=== PATIENT | male | born 1960 | race Caucasian/White ===

== ENCOUNTER 2019-01-21 12:40 | Observation (INO) | payer BC ==
[2019-01-21] MEDS ORDERED: ACETAMINOPHEN TAB 500 MG TAB PO STA (13:11)
[2019-01-21] MEDS ORDERED: ASPIRIN 81 MG PO STA (13:13)
[2019-01-21] MEDS ORDERED: NITROGLYCERIN OINT 1 INCH/GM PACKET TOPICAL STA (13:14)
--- NOTE | 2019-01-21 13:26 | ED ---
General Adult HPI - General Chief complaint: Chest Pain Stated complaint: New blood pressure meds, sweating Time Seen by Provider: 01/21/19 12:45 Source: patient, RN notes reviewed Mode of arrival: ambulatory Limitations: no limitations - History of Present Illness Initial comments: This is a 58-year-old male who presents emergency Department complaining of some chest tightness diaphoresis and shortness of breath after walking up a flight of stairs. Patient states the pain didn't radiate to his middle of his back as well. Patient states when he arrived at the hospital with a client he had another episode of chest pain with the chest tightness radiating directly into his back again. Patient states over the last few weeks he is been getting over sinus infection but he has been feeling better as of late. Patient states today he was walking up a few steps to [place] and he became diaphoretic certainly some chest tightness and shortness of breath. Patient states the tightness still remains a little on these still a little short of breath. Patient states he does have high blood pressure and high cholesterol. Patient states he also smoke. Patient denies any palpitations. Patient denies any recent fever or chills. Patient denies a cough. Patient denies any recent trip or travel. Patient denies any swelling to the legs or calf tenderness. Patient denies any lightheadedness dizziness or near syncopal episode. Patient denies headache patient denies numbness weakness. - Related Data Home Medications Medication Instructions Recorded Confirmed Gemfibrozil [Lopid] 600 mg PO DAILY 01/21/19 01/21/19 Lisinopril 40 mg PO DAILY 01/21/19 01/21/19 Lovastatin [Mevacor] 40 mg PO DAILY 01/21/19 01/21/19 amLODIPine BESYLATE 5 mg PO DAILY 01/21/19 01/21/19 Allergies Allergy/AdvReac Type Severity Reaction Status Date / Time No Known Allergies Allergy Verified 01/21/19 13:59 Review of Systems ROS Statement: Those systems with pertinent positive or pertinent negative responses have been documented in the HPI. ROS Other: All systems not noted in ROS Statement are negative. Past Medical History Past Medical History: Hyperlipidemia, Hypertension History of Any Multi-Drug Resistant Organisms: None Reported Past Surgical History: Back Surgery Past Psychological History: No Psychological Hx Reported Smoking Status: Current every day smoker Past Alcohol Use History: Occasional Past Drug Use History: None Reported General Exam - General Exam Comments Initial Comments: GENERAL: Patient is well-developed and well-nourished. Patient is nontoxic and well- hydrated and is in mild distress. ENT: Neck is soft and supple. No significant lymphadenopathy is noted. Oropharynx is clear. Moist mucous membranes. Neck has full range of motion without eliciting any pain. Patient's temperature was 99.6 EYES: The sclera were anicteric and conjunctiva were pink and moist. Extraocular movements were intact and pupils were equal round and reactive to light. Eyelids were unremarkable. PULMONARY: Unlabored respirations. Good breath sounds bilaterally. No audible rales rhonchi or wheezing was noted. CARDIOVASCULAR: Patient is tachycardic at 110 beats a minute ABDOMEN: Soft and nontender with normal bowel sounds. No palpable organomegaly was noted. There is no palpable pulsatile mass. SKIN: Skin is clear with no lesions or rashes and otherwise unremarkable. NEUROLOGIC: Patient is alert and oriented x3. Cranial nerves II through XII are grossly intact. Motor and sensory are also intact. Normal speech, volume and content. Symmetrical smile. MUSCULOSKELETAL: Normal extremities with adequate strength and full range of motion. No lower extremity swelling or edema. No calf tenderness. LYMPHATICS: No significant lymphadenopathy is noted PSYCHIATRIC: Normal psychiatric evaluation. Limitations: no limitations Course Vital Signs 01/21/19 01/21/19 01/21/19 12:47 13:51 13:56 Temperature 98.1 F 98.3 F Pulse Rate 113 H 101 H Pulse Rate [ 101 H Apical] Respiratory 20 16 Rate Blood Pressure 167/85 139/84 O2 Sat by Pulse 98 96 Oximetry Medical Decision Making - Medical Decision Making EKG shows sinus tachycardia 110 beats a minute VA interval 1:30 QRS is 90 QT interval is 328 QTC is 443. Patient's EKG shows no ST segment elevation or depression or T wave abnormalities are noted. Chest x-ray shows no acute abnormalities I went back and reevaluate the patient he was no longer having any chest pain. Patient was started on heparin because he unstable angina. I spoke with Dr. Tabor he agreed to admit the patient admitted the patient continued heparin Nitropaste and aspirin on the floor. I also started patient on metoprolol 12.5 twice a day. And I ordered an echocardiogram and consult cardiology. - Lab Data Result diagrams: 01/21/19 13:50 01/21/19 13:50 Lab Results 01/21/19 01/21/19 01/21/19 Range/Units 13:50 13:50 13:50 WBC 10.6 (3.8-10.6) k/uL RBC 5.42 (4.30-5.90) m/uL Hgb 16.0 (13.0-17.5) gm/dL Hct 47.0 (39.0-53.0) % MCV 86.7 (80.0-100.0) fL MCH 29.5 (25.0-35.0) pg MCHC 34.0 (31.0-37.0) g/dL RDW 13.3 (11.5-15.5) % Plt Count 335 (150-450) k/uL Neutrophils % 66 % Lymphocytes % 22 % Monocytes % 7 % Eosinophils % 2 % Basophils % 1 % Neutrophils # 7.0 (1.3-7.7) k/uL Lymphocytes # 2.3 (1.0-4.8) k/uL Monocytes # 0.7 (0-1.0) k/uL Eosinophils # 0.3 (0-0.7) k/uL Basophils # 0.1 (0-0.2) k/uL PT (9.0-12.0) sec INR (<1.2) APTT (22.0-30.0) sec D-Dimer (<0.60) mg/L FEU Sodium 141 (137-145) mmol/L Potassium 5.2 H (3.5-5.1) mmol/L Chloride 108 H (98-107) mmol/L Carbon Dioxide 24 (22-30) mmol/L Anion Gap 9 mmol/L BUN 29 H (9-20) mg/dL Creatinine 0.92 (0.66-1.25) mg/dL Est GFR (CKD-EPI)AfAm >90 (>60 ml/min/1.73 sqM) Est GFR (CKD-EPI)NonAf >90 (>60 ml/min/1.73 sqM) Glucose 103 H (74-99) mg/dL Plasma Lactic Acid Morris 1.1 (0.7-2.0) mmol/L Calcium 9.8 (8.4-10.2) mg/dL Total Bilirubin 0.6 (0.2-1.3) mg/dL AST 18 (17-59) U/L ALT 25 (21-72) U/L Alkaline Phosphatase 75 (38-126) U/L Troponin I (0.000-0.034) ng/mL Total Protein 7.6 (6.3-8.2) g/dL Albumin 4.8 (3.5-5.0) g/dL Urine Color Urine Appearance (Clear) Urine pH (5.0-8.0) Ur Specific Preston (1.001-1.035) Urine Protein (Negative) Urine Glucose (UA) (Negative) Urine Ketones (Negative) Urine Blood (Negative) Urine Nitrite (Negative) Urine Bilirubin (Negative) Urine Urobilinogen (<2.0) mg/dL Ur Leukocyte Esterase (Negative) Influenza Type A RNA (Not Detectd) Influenza Type B (PCR) (Not Detectd) 01/21/19 01/21/19 01/21/19 Range/Units 13:50 13:50 13:55 WBC (3.8-10.6) k/uL RBC (4.30-5.90) m/uL Hgb (13.0-17.5) gm/dL Hct (39.0-53.0) % MCV (80.0-100.0) fL MCH (25.0-35.0) pg MCHC (31.0-37.0) g/dL RDW (11.5-15.5) % Plt Count (150-450) k/uL Neutrophils % % Lymphocytes % % Monocytes % % Eosinophils % % Basophils % % Neutrophils # (1.3-7.7) k/uL Lymphocytes # (1.0-4.8) k/uL Monocytes # (0-1.0) k/uL Eosinophils # (0-0.7) k/uL Basophils # (0-0.2) k/uL PT 9.9 (9.0-12.0) sec INR 0.9 (<1.2) APTT 25.0 (22.0-30.0) sec D-Dimer 0.39 (<0.60) mg/L FEU Sodium (137-145) mmol/L Potassium (3.5-5.1) mmol/L Chloride (98-107) mmol/L Carbon Dioxide (22-30) mmol/L Anion Gap mmol/L BUN (9-20) mg/dL Creatinine (0.66-1.25) mg/dL Est GFR (CKD-EPI)AfAm (>60 ml/min/1.73 sqM) Est GFR (CKD-EPI)NonAf (>60 ml/min/1.73 sqM) Glucose (74-99) mg/dL Plasma Lactic Acid Morris (0.7-2.0) mmol/L Calcium (8.4-10.2) mg/dL Total Bilirubin (0.2-1.3) mg/dL AST (17-59) U/L ALT (21-72) U/L Alkaline Phosphatase (38-126) U/L Troponin I <0.012 (0.000-0.034) ng/mL Total Protein (6.3-8.2) g/dL Albumin (3.5-5.0) g/dL Urine Color Colorless Urine Appearance Clear (Clear) Urine pH 6.0 (5.0-8.0) Ur Specific Preston 1.005 (1.001-1.035) Urine Protein Negative (Negative) Urine Glucose (UA) Negative (Negative) Urine Ketones Negative (Negative) Urine Blood Negative (Negative) Urine Nitrite Negative (Negative) Urine Bilirubin Negative (Negative) Urine Urobilinogen <2.0 (<2.0) mg/dL Ur Leukocyte Esterase Negative (Negative) Influenza Type A RNA (Not Detectd) Influenza Type B (PCR) (Not Detectd) 01/21/19 Range/Units 15:20 WBC (3.8-10.6) k/uL RBC (4.30-5.90) m/uL Hgb (13.0-17.5) gm/dL Hct (39.0-53.0) % MCV (80.0-100.0) fL MCH (25.0-35.0) pg MCHC (31.0-37.0) g/dL RDW (11.5-15.5) % Plt Count (150-450) k/uL Neutrophils % % Lymphocytes % % Monocytes % % Eosinophils % % Basophils % % Neutrophils # (1.3-7.7) k/uL Lymphocytes # (1.0-4.8) k/uL Monocytes # (0-1.0) k/uL Eosinophils # (0-0.7) k/uL Basophils # (0-0.2) k/uL PT (9.0-12.0) sec INR (<1.2) APTT (22.0-30.0) sec D-Dimer (<0.60) mg/L FEU Sodium (137-145) mmol/L Potassium (3.5-5.1) mmol/L Chloride (98-107) mmol/L Carbon Dioxide (22-30) mmol/L Anion Gap mmol/L BUN (9-20) mg/dL Creatinine (0.66-1.25) mg/dL Est GFR (CKD-EPI)AfAm (>60 ml/min/1.73 sqM) Est GFR (CKD-EPI)NonAf (>60 ml/min/1.73 sqM) Glucose (74-99) mg/dL Plasma Lactic Acid Morris (0.7-2.0) mmol/L Calcium (8.4-10.2) mg/dL Total Bilirubin (0.2-1.3) mg/dL AST (17-59) U/L ALT (21-72) U/L Alkaline Phosphatase (38-126) U/L Troponin I (0.000-0.034) ng/mL Total Protein (6.3-8.2) g/dL Albumin (3.5-5.0) g/dL Urine Color Urine Appearance (Clear) Urine pH (5.0-8.0) Ur Specific Preston (1.001-1.035) Urine Protein (Negative) Urine Glucose (UA) (Negative) Urine Ketones (Negative) Urine Blood (Negative) Urine Nitrite (Negative) Urine Bilirubin (Negative) Urine Urobilinogen (<2.0) mg/dL Ur Leukocyte Esterase (Negative) Influenza Type A RNA Not Detected (Not Detectd) Influenza Type B (PCR) Not Detected (Not Detectd) Critical Care Time Critical Care Time: Yes Total Critical Care Time: 35 Disposition Clinical Impression: Unstable angina pectoris Disposition: ADMITTED IP TO THIS HOSP Is patient prescribed a controlled substance at d/c from ED?: No Referrals: Shankar Tabor MD [Primary Care Provider] - 1-2 days Time of Disposition: 16:03
[2019-01-21 14:11] LABS: Basophils # (A) 0.1 k/uL (0-0.2); Basophils % (A) 1 %; Eosinophils # (A) 0.3 k/uL (0-0.7); Eosinophils % (A) 2 %; Lymphocytes # (A) 2.3 k/uL (1.0-4.8); Lymphocytes % (A) 22 %; MCH 29.5 pg (25.0-35.0); MCV 86.7 fL (80.0-100.0); Mean Platelet Volume 6.6; Monocytes # (A) 0.7 k/uL (0-1.0); Monocytes % (A) 7 %; Neutrophils % (A) 66 %; Platelet Count 335 k/uL (150-450); RBC 5.42 m/uL (4.30-5.90); RDW 13.3 % (11.5-15.5); WBC 10.6 k/uL (3.8-10.6)
[2019-01-21 14:13] LABS: Appearance,Urine Clear (Clear); Bilirubin,Urine Negative (Negative); Blood,Urine Negative (Negative); Color,Urine Colorless; Glucose,Urine (UA) Negative (Negative); Ketones,Urine Negative (Negative); Leukocyte Esterase,Urine Negative (Negative); Nitrite,Urine Negative (Negative); Protein,Urine Negative (Negative); Specific Gravity,Urine 1.005 (1.001-1.035); Urobilinogen,Urine <2.0 mg/dL (<2.0)
[2019-01-21 14:22] LABS: ALT 25 U/L (21-72); AST 18 U/L (17-59); Albumin 4.8 g/dL (3.5-5.0); Alkaline Phosphatase 75 U/L (38-126); Anion Gap 9 mmol/L; Blood Urea Nitrogen 29 mg/dL (9-20); Calcium 9.8 mg/dL (8.4-10.2); Carbon Dioxide 24 mmol/L (22-30); Chloride 108 mmol/L (98-107); Glucose 103 mg/dL (74-99); Potassium 5.2 mmol/L (3.5-5.1); Sodium 141 mmol/L (137-145); Total Bilirubin 0.6 mg/dL (0.2-1.3); Total Protein 7.6 g/dL (6.3-8.2)
[2019-01-21 14:24] LABS: D-Dimer 0.39 mg/L FEU (<0.60); INR 0.9 (<1.2); Prothrombin Time 9.9 sec (9.0-12.0)
--- NOTE | 2019-01-21 15:13 | XR ---
EXAMINATION TYPE: XR chest 2V DATE OF EXAM: 01/21/2019 COMPARISON: NONE TECHNIQUE: PA and lateral views submitted. HISTORY: Fever, shortness of breath and chest pain FINDINGS: Heart size normal. No overt failure or pneumothorax. No pleural effusion. Subsegmental changes at the left lung base. Biapical pleural thickening. IMPRESSION: 1. Left basilar atelectasis favored over infiltrate correlate clinically.
[2019-01-21] MEDS ORDERED: HEPARIN SODIUM,PORCINE 5,000 UNIT/ML 1 ML VIAL IV ONE (16:01)
[2019-01-21] MEDS ORDERED: NITROGLYCERIN SL TABS 0.4 MG TAB SUBLINGUAL PRN (16:03)
[2019-01-21] MEDS ORDERED: NICOTINE 14MG/24HR PATCH TRANSDERM STA (16:07)
[2019-01-21] MEDS ORDERED: HEPARIN SOD,PORK IN 0.45% NACL 25,000 UNIT in 0.45% NACL 1 250ML.BAG IV SCH (16:15)
[2019-01-21 16:55] VITALS: BMI 30.4
[2019-01-21] MEDS: NITROGLYCERIN OINT 1 INCH/GM PACKET TOPICAL SCH (19:48)
[2019-01-21] MEDS: METOPROLOL TARTRATE 12.5 MG TAB PO SCH ×2 (19:59→20:06)
[2019-01-21 22:56] LABS: Cholesterol 147 mg/dL (<200); HDL Cholesterol 31 mg/dL (40-60); LDL Cholesterol,Calculated 82 mg/dL (0-99); Triglycerides 170 mg/dL (<150)
[2019-01-22] MEDS: NITROGLYCERIN OINT 1 INCH/GM PACKET TOPICAL SCH ×3 (00:24→05:01)
[2019-01-22 07:55] VITALS: BP 101/63; PULSE 80; RESP 18; TEMP 97.5
[2019-01-22] MEDS ORDERED: LISINOPRIL 20 MG TAB PO SCH (09:00)
[2019-01-22] MEDS ORDERED: FAMOTIDINE 20 MG TAB PO SCH (09:00)
[2019-01-22] MEDS ORDERED: amLODIPine 5 MG TAB PO SCH (09:00)
[2019-01-22] MEDS ORDERED: FENOFIBRATE 160 MG TAB PO SCH (09:00)
[2019-01-22] MEDS ORDERED: ASPIRIN 325 MG TAB PO SCH (09:00)
[2019-01-22] MEDS ORDERED: NICOTINE 14MG/24HR PATCH TRANSDERM SCH ×2 (09:00)
[2019-01-22] MEDS ORDERED: ATORVASTATIN 10 MG TAB PO SCH (09:00)
--- NOTE | 2019-01-22 09:52 | P.CRDCN ---
History of Present Illness History of present illness: This is a pleasant 58-year-old male past medical history significant for hypertension, dyslipidemia, chronic nicotine dependence and gastroesophageal reflux disease. He denies history of diabetes mellitus or coronary artery disease. He has seen Dr. Pitts in the past in the office. We have been asked to see him in consultation for chest pain. He states over the previous few weeks he has been struggling with cough, congestion and upper respiratory/sinus illness. Through the course of this he has been checking his blood pressures at home and they have been consistently elevated around 180/ 100. His pulse has consistently been elevated between 95-110 as well. His PCP asked him to double his dose of lisinopril from 20 daily to 40 daily. Despite doing that his blood pressures were still high and Saturday he was started on amlodipine 5 mg daily. Yesterday while at work he just got done going up 3 flights of stairs, which he regularly does, and he became acutely diaphoretic while talking with a co-worker. This lasted a few minutes and resolved on its own. He had no associated chest pain, shortness of breath, dizziness or palpitations. He then came to the hospital to visit with a client of his that was here and he had a similar episode of acute onset of diaphoresis. However this time he describes feeling a tight sensation in the mid-scaular region with radiation through to the mid-sternal region. No radiation down the arms, into the neck or jaw. He also felt mildly short of breath. No dizziness or palpitations. The symptoms lasted approximately 5 minutes and subsided on their own. He has had no further symptoms since being admitted to the hospital. EKG reveals sinus mechanism with no acute changes or ST elevation noted. Chest xray reveals left basilar atelectasis versus infiltrate. Laboratory data reviewed, WBC 10.6, hemoglobin 16, platelets 335, d-dimer 0.39, sodium 141, potassium 5.2, creatinine 0.92, cardiac enzymes negative 3, LDL 82 and HDL 31. Current cardiac medications include lisinopril 40 mg daily, Lopid 600 mg daily, lovastatin 40 mg daily and amlodipine 5 mg daily. At the time of my exam: CONSTITUTIONAL: Denies fever. Denies chills. EYES: Denies blurred vision. Denies vision changes. Denies eye pain. EARS, NOSE, MOUTH & THROAT: Denies headache. Denies sore throat. Denies ear pain. CARDIOVASCULAR: Denies chest pain. Denies shortness of breath. Denies orthopnea. Denies PND. Denies palpitations. RESPIRATORY: Denies cough. GASTROINTESTINAL: Denies abdominal pain. Denies diarrhea. Denies constipation. Denies nausea. Denies vomiting. MUSCULOSKELETAL: Denies myalgias. INTEGUMENTARY: Denies pruitis. Denies rash. NEUROLOGIC: Denies numbness. Denies tingling. Denies weakness. PSYCHIATRIC: Denies anxiety. Denies depression. ENDOCRINE: Denies fatigue. Denies weight change. Denies polydipsia. Denies polyurina. GENITOURINARY: Denies burning, hematuria or urgency with micturation. HEMATOLOGIC: Denies history of anemia. Denies bleeding. Blood pressure 101/63 heart rate 88 afebrile maintaining oxygen saturation on room air GENERAL: This is a 58-year-old male in no apparent distress at the time of my examination. HEENT: Head is atraumatic, normocephalic. Pupils are equal, round. Sclerae anicteric. Conjunctivae are clear. Mucous membranes of the mouth are moist. Neck is supple. There is no jugular venous distention. No carotid bruit is heard. LUNGS: Clear to auscultation no wheezes, rales or rhonchi. No chest wall tenderness is noted on palpation or with deep breathing. HEART: Regular rate and rhythm without murmurs, rubs or gallops. S1 and S2 heard. ABDOMEN: Soft, nontender. Bowel sounds are heard. No organomegaly noted. EXTREMITIES: No evidence of peripheral edema and no calf tenderness noted. VASCULAR: Radial and dorsalis pedis pulses palpated, no evidence of clubbing. NEUROLOGIC: Patient is awake, alert and oriented x3. ASSESSMENT Chest pain, atypical for angina. An acute coronary event has been ruled out. Possibility of pneumonia seen on chest xray Sinus tachycardia, etiology unknown. Possibly related to underlying infection. Hypertension, evidence of hypotension since admission. Dyslipidemia Chronic nicotine dependence PLAN An acute coronary event has been ruled out. Discontinue heparin infusion, nitroglycerin patch and lopressor. Echocardiogram has been ordered by ED and will be reviewed. Check TSH. Underlying cause of sinus tachycardia my be related to infectious process. Increase activity and ambulation in the halls. The patient would prefer to do a stress test as an outpatient when his URI symptoms have improved. If he remains chest pain free with exertion he may be discharged home to pursue a stress test as an outpatient with Dr. Pitts. Thank you kindly for this consultation. Nurse Practitioner note has been reviewed, I agree with a documented findings and plan of care. Patient was seen and examined. 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 History of Any Multi-Drug Resistant Organisms: None Reported Past Surgical History: Back Surgery Additional Past Surgical History / Comment(s): colonoscopy/polypectomy-benign, egd Past Anesthesia/Blood Transfusion Reactions: No Reported Reaction Additional Past Anesthesia/Blood Transfusion Reaction / Comment(s): has never received any blood transfusion Smoking Status: Current every day smoker - Past Family History Mother Family Medical History: Cancer Additional Family Medical History / Comment(s): cervical cancer Father Family Medical History: Cancer Additional Family Medical History / Comment(s): lung cancer, was smoker and had expsoure to asbestos Medications and Allergies Home Medications Medication Instructions Recorded Confirmed Type Gemfibrozil [Lopid] 600 mg PO DAILY 01/21/19 01/21/19 History Lisinopril 40 mg PO DAILY 01/21/19 01/21/19 History Lovastatin [Mevacor] 40 mg PO DAILY 01/21/19 01/21/19 History amLODIPine BESYLATE 5 mg PO DAILY 01/21/19 01/21/19 History Allergies Allergy/AdvReac Type Severity Reaction Status Date / Time No Known Allergies Allergy Verified 01/21/19 20:07 Physical Exam Vitals: Vital Signs Temp Pulse Pulse Resp BP BP Pulse Ox 01/22/19 04:44 98.0 F 87 14 100/56 98 01/22/19 02:58 79 16 01/22/19 00:28 97.7 F 80 14 93/46 99 01/21/19 23:27 89 17 01/21/19 20:00 88 17 01/21/19 19:15 98.7 F 91 14 135/88 99 01/21/19 16:47 89 20 125/77 95 01/21/19 13:56 101 H 01/21/19 13:51 98.3 F 101 H 16 139/84 96 01/21/19 12:47 98.1 F 113 H 20 167/85 98 Intake and Output 01/21/19 01/22/19 01/22/19 22:59 06:59 14:59 Intake Total 115.5 Balance 115.5 Intake: Intake, IV Titration 115.5 Amount Heparin Sod,Pork in 0.45% 115.5 NaCl 25,000 unit In 0.45 % NaCl 1 250ml.bag @ 10. 409 UNITS/KG/HR 10 mls/hr IV .Q24H [facility] Rx#: [id number] Other: Voiding Method Toilet Toilet # Voids 1 Results 01/21/19 13:50 01/21/19 13:50 Cardiac Enzymes 01/21/19 01/21/19 01/21/19 Range/Units 13:50 13:50 19:04 AST 18 (17-59) U/L Troponin I <0.012 <0.012 (0.000-0.034) ng/mL 01/22/19 Range/Units 01:42 AST (17-59) U/L Troponin I <0.012 (0.000-0.034) ng/mL Coagulation 01/21/19 01/22/19 Range/Units 13:50 03:22 PT 9.9 (9.0-12.0) sec APTT 25.0 35.7 H (22.0-30.0) sec Lipids 01/21/19 Range/Units 13:50 Triglycerides 170 H (<150) mg/dL Cholesterol 147 (<200) mg/dL HDL Cholesterol 31 L (40-60) mg/dL CBC 01/21/19 Range/Units 13:50 WBC 10.6 (3.8-10.6) k/uL RBC 5.42 (4.30-5.90) m/uL Hgb 16.0 (13.0-17.5) gm/dL Hct 47.0 (39.0-53.0) % Plt Count 335 (150-450) k/uL Comprehensive Metabolic Panel 01/21/19 Range/Units 13:50 Sodium 141 (137-145) mmol/L Potassium 5.2 H (3.5-5.1) mmol/L Chloride 108 H (98-107) mmol/L Carbon Dioxide 24 (22-30) mmol/L BUN 29 H (9-20) mg/dL Creatinine 0.92 (0.66-1.25) mg/dL Glucose 103 H (74-99) mg/dL Calcium 9.8 (8.4-10.2) mg/dL AST 18 (17-59) U/L ALT 25 (21-72) U/L Alkaline Phosphatase 75 (38-126) U/L Total Protein 7.6 (6.3-8.2) g/dL Albumin 4.8 (3.5-5.0) g/dL Current Medications Generic Name Dose Route Start Last Admin Trade Name Freq PRN Reason Stop Dose Admin Amlodipine Besylate 5 mg 01/22/19 09:00 Norvasc PO DAILY [facility] Aspirin 325 mg 01/22/19 09:00 Aspirin PO DAILY [facility] Atorvastatin Calcium 10 mg 01/22/19 09:00 Lipitor PO DAILY [facility] Famotidine 20 mg 01/22/19 09:00 Pepcid PO DAILY [facility] Fenofibrate 160 mg 01/22/19 09:00 Lofibra PO DAILY [facility] Heparin Sodium/Sodium Chloride 250 mls @ 10 mls/hr 01/21/19 16:15 01/22/19 04 :19 25,000 unit/ Sodium Chloride IV 13.409 units/kg/hr .Q24H [facility] 12.88 mls/hr Titration Protocol 10.409 UNITS/KG/HR Lisinopril 40 mg 01/22/19 09:00 Zestril PO DAILY [facility] Metoprolol Tartrate 12.5 mg 01/21/19 21:00 01/21/19 20:06 Lopressor PO Not Given BID [facility] Nicotine 1 patch 01/22/19 09:00 Habitrol 14mg/24hr Patch TRANSDERM DAILY [facility] Nitroglycerin 1 inch 01/21/19 18:00 01/22/19 05:01 Nitro-Bid Oint TOPICAL 1 inch Q6HR [facility] Administration Nitroglycerin 0.4 mg 01/21/19 16:03 Nitrostat SUBLINGUAL Q5M PRN Chest Pain Intake and Output 01/21/19 01/22/19 01/22/19 22:59 06:59 14:59 Intake Total 115.5 Balance 115.5 Intake: Intake, IV Titration 115.5 Amount Heparin Sod,Pork in 0.45% 115.5 NaCl 25,000 unit In 0.45 % NaCl 1 250ml.bag @ 10. 409 UNITS/KG/HR 10 mls/hr IV .Q24H [facility] Rx#: [id number] Other: Voiding Method Toilet Toilet # Voids 1 01/21/19 13:50 01/21/19 13:50
--- NOTE | 2019-01-22 13:32 | P.HPIM ---
History of Present Illness H&P Date: 01/21/19 Chief Complaint: unstable angina, chest pain, hypertension, hyperlipidem, and chronic histo 58-year-old male one of my office patient who is known to have history of hypertension, hyperlipidemia, hyperglycemia, and chronic history of smoking who presented to demurs department today after 2 episode of chest pain one of them happen at the [facility] when he was with the client walking up to the [employer] developed to have midsternal chest pain and tightness with mild shortness of breath radiating toward the left upper side of his chest wall. Apparently he came with the client to the hospital and a blood another episode of chest pain while he is not hospital with mild swelling nausea feeling and palpitation with mild lightheadedness. Patient declined any cough or any upper respiratory infection symptoms. With the CK and troponin were negative EKG didn't show any change. Patient has extremely high risk factor for coronary artery disease decided to heparinize patient keep him on nitro admitted to the hospital with see cardiology and plan for an echocardiogram and possible stress test. Review of Systems CONSTITUTIONAL: Well-developed no acute respiratory distress. EYES: No icterus sclerae, no conjunctivitis. EARS, NOSE, MOUTH, THROAT, and FACE: No sore throat, lymphadenopathy, carotid bruits or deformity. RESPIRATORY: positive mild shortness of breath with exertion CARDIOVASCULAR: positive chest pain and angina< positive palpitation GASTROINTESTINAL: No Abd pain, Nausea or vomiting, no Diarrhea or constipation, No GI Bleed, no distention or masses. GENITOURINARY: Negative for Hematuria or UTI, no kidney stones. INTEGUMENT/BREAST: Negative for any muscular injury with mild osteoarthritis.. HEMATOLOGIC/LYMPHATIC: Negative for bleed or purpura. MUSCULOSKELTAL: Negative for Myalgia or arthralgia. NEURLOGICAL: No LOC, Sz or syncope, blurred vision dizziness or abnormality.. BEHAVIORAL/PSYCH: Negative. ENDOCRINE: Negative. 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 History of Any Multi-Drug Resistant Organisms: None Reported Past Surgical History: Back Surgery Additional Past Surgical History / Comment(s): colonoscopy/polypectomy-benign, egd Past Anesthesia/Blood Transfusion Reactions: No Reported Reaction Additional Past Anesthesia/Blood Transfusion Reaction / Comment(s): has never received any blood transfusion Smoking Status: Current every day smoker - Past Family History Mother Family Medical History: Cancer Additional Family Medical History / Comment(s): cervical cancer Father Family Medical History: Cancer Additional Family Medical History / Comment(s): lung cancer, was smoker and had expsoure to asbestos Medications and Allergies Home Medications Medication Instructions Recorded Confirmed Type Gemfibrozil [Lopid] 600 mg PO DAILY 01/21/19 01/21/19 History Lisinopril 40 mg PO DAILY 01/21/19 01/21/19 History Lovastatin [Mevacor] 40 mg PO DAILY 01/21/19 01/21/19 History amLODIPine BESYLATE 5 mg PO DAILY 01/21/19 01/21/19 History Aspirin EC [Ecotrin Low Dose] 81 mg PO DAILY #30 tablet.dr 01/22/19 Rx Metoprolol Tartrate 12.5 mg PO BID #30 tab 01/22/19 Rx Nicotine 14Mg/24Hr Patch [Habitrol] 1 patch TRANSDERM DAILY #30 patch 01/22/19 Rx Allergies Allergy/AdvReac Type Severity Reaction Status Date / Time No Known Allergies Allergy Verified 01/21/19 20:07 Physical Exam Vitals: Vital Signs Temp Pulse Pulse Resp BP BP Pulse Ox 01/21/19 19:15 98.7 F 91 14 135/88 99 01/21/19 16:47 89 20 125/77 95 01/21/19 13:56 101 H 01/21/19 13:51 98.3 F 101 H 16 139/84 96 01/21/19 12:47 98.1 F 113 H 20 167/85 98 Intake and Output 01/21/19 01/21/19 01/21/19 06:59 14:59 22:59 Other: Weight 96.071 kg General Appearance: Alert, cooperative, no distress, appears stated age. Neck HEENT: Supple, no lymphadenopathy, no thyroid enlargement, no carotid bruits. Lungs: Clear to auscultation without crackles or wheezes no rhonchi, no deformity. Chest Wall: Chest wall normal expansion with deep inspiration no tenderness and no deformity was found on exam, no costochondral pain or discomfort. Heart: Regular rate and rhythm, S1, S2 normal, no murmur, rub or gallop. Back: Symmetric, no curvature, ROM normal, no CVA tenderness. Abdomen: Soft, non-tender, bowel sounds active all four quadrants, no masses, no organomegaly. Extremities: Extremities normal, atraumatic, no cyanosis or edema. Pulses: 2+ and symmetric. Skin: Skin color, texture, tugor normal, no rashes or lesions. Neurologic: Alert oriented x3 cranial nerves II through XII intact, no motor deficit, no abnormal balance or gait. Results CBC & Chem 7: 01/21/19 13:50 01/21/19 13:50 Labs: Abnormal Lab Results - Last 24 Hours (Table) 01/21/19 Range/Units 13:50 Potassium 5.2 H (3.5-5.1) mmol/L Chloride 108 H (98-107) mmol/L BUN 29 H (9-20) mg/dL Glucose 103 H (74-99) mg/dL Microbiology - Last 24 Hours (Table) 01/21/19 13:55 Urine Culture - Preliminary Urine,Clean Catch Thrombosis Risk Factor Assmnt - DVT/VTE Prophylaxis DVT/VTE Prophylaxis: Pharmacologic Prophylaxis ordered, Mechanical Prophylaxis ordered Assessment and Plan Plan: 1 Unstable angina: Patient had typical chest pain with exertion, multiple risk factor, we will admit patient to the hospital start him on heparin drip nitro consult cardiology, repeat CK with troponin 3, repeat EKG in the morning, echocardiogram and stress test to be done if troponin is elevated patient will need to go for heart cath. 2 hypertension: Has been well controlled on his home meds been on amlodipine and lisinopril was start patient on smaller dose of beta taylor as well with metoprolol 12.5 mg twice a day. 3 hyperlipidemia: Remain on statin which will be switch in the hospital to atorvastatin and continue patient on fenofibrate. 4 chronic history of smoking: Smoking cessation was addressed was start patient on nicotine patch 14 mg daily. 5 severe GERD: Patient will be on Pepcid and can benefit from PPI with omeprazole 20 mg a day. 6 DVT prophylaxis: Patient will be on heparin drip for now. CODE STATUS: Full code. Admit patient to the hospital for 1-2 night.
--- NOTE | 2019-01-22 15:53 | P.DS ---
Providers Date of admission: 01/21/19 16:03 Expected date of discharge: 01/22/19 Attending physician: Shankar Tabor Consults: 01/21/19 16:03 Consult Physician Urgent Consulting Provider: [facility] Consult Reason/Comments: Unstable angina Do you want consulting provider notified?: Yes Primary care physician: Shankar Leander [facility] Course: 58-year-old male one of my office patient who is known to have history of hypertension, hyperlipidemia, hyperglycemia, and chronic history of smoking who presented to demurs department today after 2 episode of chest pain one of them happen at the [facility] when he was with the client walking up to the [employer] developed to have midsternal chest pain and tightness with mild shortness of breath radiating toward the left upper side of his chest wall. Apparently he came with the client to the hospital and a blood another episode of chest pain while he is not hospital with mild swelling nausea feeling and palpitation with mild lightheadedness. Patient declined any cough or any upper respiratory infection symptoms. With the CK and troponin were negative EKG didn't show any change. Patient has extremely high risk factor for coronary artery disease decided to heparinize patient keep him on nitro admitted to the hospital with see cardiology and plan for an echocardiogram and possible stress test. 01/22: Cardiology has evaluated with plan for outpatient stress testing. Patient states he is pain-free and is agreeable to go home and follow up for testing. Patient is agreeable to start a nicotine patch for smoking cessation at home. He will be discharged home on Lopressor 12.5 mg twice daily as well. Discharge diagnoses: 1 Unstable angina 2 hypertension 3 hyperlipidemia 4 chronic history of smoking: Smoking cessation 5 severe GERD Discharge plan: Home Impression and plan of care have been directed as dictated by the signing physician. Kierra Tiwari nurse practitioner acting as scribe for signing physician. Patient Condition at Discharge: Good Plan - Discharge Summary Discharge Rx Participant: No New Discharge Prescriptions: New Metoprolol Tartrate 12.5 mg PO BID #30 tab Nicotine 14Mg/24Hr Patch [Habitrol] 1 patch TRANSDERM DAILY #30 patch Aspirin EC [Ecotrin Low Dose] 81 mg PO DAILY #30 tablet. Continue amLODIPine BESYLATE 5 mg PO DAILY Lovastatin [Mevacor] 40 mg PO DAILY Lisinopril 40 mg PO DAILY Gemfibrozil [Lopid] 600 mg PO DAILY Discharge Medication List Gemfibrozil [Lopid] 600 mg PO DAILY 01/21/19 [History] Lisinopril 40 mg PO DAILY 01/21/19 [History] Lovastatin [Mevacor] 40 mg PO DAILY 01/21/19 [History] amLODIPine BESYLATE 5 mg PO DAILY 01/21/19 [History] Aspirin EC [Ecotrin Low Dose] 81 mg PO DAILY #30 tablet. 01/22/19 [Rx] Metoprolol Tartrate 12.5 mg PO BID #30 tab 01/22/19 [Rx] Nicotine 14Mg/24Hr Patch [Habitrol] 1 patch TRANSDERM DAILY #30 patch 01/22/19 [ Rx] Follow up Appointment(s)/Referral(s): Shankar Tabor MD [Primary Care Provider] - 1 Week (pt to follow up with PCP.) Tamir Pitts MD [STAFF PHYSICIAN] - 1 Week (dental front office assistant, More, states she will call the patient regarding time and date of outpatient stress test. ) Patient Instructions/Handouts: Chest Pain (DC) Activity/Diet/Wound Care/Special Instructions: Schedule for OP stress test Discharge Disposition: HOME SELF-CARE
--- NOTE | 2019-01-22 16:34 | ECHOF ---
Referral Reason:Unstable angina MEASUREMENTS -------- HEIGHT: 177.8 cm WEIGHT: 95.7 kg BP: 100/56 RVIDd: 2.7 cm (< 3.3) IVSd: 1.3 cm (0.6 - 1.1) LVIDd: 3.5 cm (3.9 - 5.3) LVPWd: 1.3 cm (0.6 - 1.1) IVSs: 1.4 cm LVIDs: 2.4 cm LVPWs: 1.4 cm LAESV Index (A-L): 17.91 ml/m Ao Diam: 2.8 cm (2.0 - 3.7) AV Cusp: 1.7 cm (1.5 - 2.6) LA Diam: 3.6 cm (2.7 - 3.8) MV E Alexy: 0.70 m/s MV DecT: 276 ms MV A Alexy: 0.57 m/s MV E/A Ratio: 1.23 RAP: 5.00 mmHg RVSP: 9.97 mmHg MV EF SLOPE: 120.72 mm/s (70 - 150) MV EXCURSION: 1.78 cm (> 18.000) FINDINGS -------- Sinus rhythm. This was a technically adequate study. The left ventricular size is normal. There is moderate concentric left ventricular hypertrophy. O verall left ventricular systolic function is normal with, an EF between 55 - 60 %. The right ventricle is normal in size and function. Normal LA size by volume 22+/-6 ml/m2. The right atrium is normal in size. Aortic valve is trileaflet and is mildly thickened. There is no evidence of aortic regurgitation. There is no evidence of aortic stenosis. The mitral valve leaflets are mildly thickened. There is trace to mild mitral regurgitation. Trace tricuspid regurgitation present. Right ventricular systolic pressure is normal at < 35 mmHg. There is no evidence of pulmonary hypertension. Trace/mild (physiologic) pulmonic regurgitation. The aortic root size is normal. Normal inferior vena cava with normal inspiratory collapse consistent with estimated right atrial pre ssure of 5 mmHg. There is a small, generalized pericardial effusion present. CONCLUSIONS -------- 1. Sinus rhythm. 2. This was a technically adequate study. 3. The left ventricular size is normal. 4. There is moderate concentric left ventricular hypertrophy. 5. Overall left ventricular systolic function is normal with, an EF between 55 - 60 %. 6. Normal LA size by volume 22+/-6 ml/m2. 7. Aortic valve is trileaflet and is mildly thickened. 8. The mitral valve leaflets are mildly thickened. 9. There is trace to mild mitral regurgitation. 10. Trace tricuspid regurgitation present. 11. Right ventricular systolic pressure is normal at < 35 mmHg. 12. There is no evidence of pulmonary hypertension. 13. Trace/mild (physiologic) pulmonic regurgitation. 14. The aortic root size is normal. 15. There is a small, generalized pericardial effusion present. LINEN ROOM SUPERVISOR: Obed Boone RDCS
== END 2019-01-22 12:05 | disposition home or self-care (01) ==
LOC: EC 12:40 → 1SOBS 16:03
PROVIDERS: ADMIT Internal Medicine Geriatric Medicine; ATTEND Internal Medicine Geriatric Medicine
DX: I20.0 Unstable angina (principal); I10 Essential (primary) hypertension; E78.5 Hyperlipidemia, unspecified; E78.00 Pure hypercholesterolemia, unspecified; F17.200 Nicotine dependence, unspecified, uncomplicated; R00.0 Tachycardia, unspecified; K21.9 Gastro-esophageal reflux disease without esophagitis; Y93.01 Activity, walking, marching and hiking; Z71.6 Tobacco abuse counseling; Z79.82 Long term (current) use of aspirin; Z79.899 Other long term (current) drug therapy; Z80.1 Family history of malignant neoplasm of trachea, bronchus and lung
CPT/HCPCS: 96366 ×3; 96376; 96365; 99291; 36415; 93005; 93306; 85379; 80061; 80053; 84443; 83605; 84484 ×2; 85025; 85610; 85730 ×2; 81003; 87040; 87086; 87502; 71046; G0378 ×2; S4990; J1644 ×2

== ENCOUNTER → 2019-05-19 | Outpatient (CLI) | payer BC ==
[2019-05-19 16:30] LABS: African American GFR (CKD) 95.1 (60.0-200.0)
== END | disposition home or self-care (01) ==
LOC: LABWHC1 10:19
PROVIDERS: ATTEND Orthopaedic Surgery Orthopaedic Surgery of the Spine
DX: Z01.812 Encounter for preprocedural laboratory examination (principal); N28.9 Disorder of kidney and ureter, unspecified
CPT/HCPCS: 36415; 82565; 84520

== ENCOUNTER → 2019-06-08 | Outpatient (CLI) | payer BC ==
--- NOTE | 2019-06-08 10:07 | XR ---
EXAMINATION TYPE: XR chest 2V DATE OF EXAM: 06/08/2019 COMPARISON: 01/21/2019 TECHNIQUE: PA and lateral views submitted. HISTORY: Preop FINDINGS: The lungs are clear and there is no pneumothorax, pleural effusion, or focal pneumonia. Arthropathy of the shoulders. No overt failure. Biapical pleural thickening. Hypertrophic and degenerative sandoval e of the spine. Heart size stable. IMPRESSION: 1. No acute process.
[2019-06-08 10:12] LABS: Appearance,Urine Clear (Clear); Bilirubin,Urine Negative (Negative); Blood,Urine Negative (Negative); Color,Urine Yellow; Glucose,Urine (UA) Negative (Negative); Ketones,Urine Negative (Negative); Leukocyte Esterase,Urine Negative (Negative); Nitrite,Urine Negative (Negative); PH, Urine 6.5 (5.0-8.0); Protein,Urine Negative (Negative); Specific Gravity,Urine 1.015 (1.001-1.035); Urobilinogen,Urine <2.0 mg/dL (<2.0)
[2019-06-08 10:24] LABS: Calcium 10.3 mg/dL (8.4-10.2); Potassium 4.7 mmol/L (3.5-5.1)
[2019-06-08 10:25] LABS: Basophils # (A) 0.1 k/uL (0-0.2); Basophils % (A) 1 %; Eosinophils # (A) 0.3 k/uL (0-0.7); Eosinophils % (A) 2 %; HCT 43.2 % (39.0-53.0); HGB 14.3 gm/dL (13.0-17.5); Lymphocytes # (A) 2.2 k/uL (1.0-4.8); Lymphocytes % (A) 21 %; MCH 28.9 pg (25.0-35.0); MCHC 33.2 g/dL (31.0-37.0); MCV 87.2 fL (80.0-100.0); Mean Platelet Volume 7.2; Monocytes # (A) 0.6 k/uL (0-1.0); Monocytes % (A) 6 %; Neutrophils # (A) 6.9 k/uL (1.3-7.7); Neutrophils % (A) 67 %; Platelet Count 353 k/uL (150-450); RBC 4.96 m/uL (4.30-5.90); RDW 14.1 % (11.5-15.5); WBC 10.2 k/uL (3.8-10.6)
[2019-06-08 10:29] LABS: INR 0.9 (<1.2); Prothrombin Time 9.9 sec (9.0-12.0)
== END | disposition home or self-care (01) ==
LOC: LABPAT 09:22
PROVIDERS: ATTEND Orthopaedic Surgery Orthopaedic Surgery of the Spine
DX: Z01.818 Encounter for other preprocedural examination (principal); Z51.81 Encounter for therapeutic drug level monitoring
CPT/HCPCS: 36415; 71046; 80048; 81003; 85025; 85610; 85730; 87070

== ENCOUNTER 2019-06-17 06:27 | Inpatient (IN) | payer BC ==
[2019-06-10 09:35] VITALS: BMI 28.7
[~2019-06-17 06:27] MED LIST: BACITRACIN 50,000 UNIT, POLYMYXIN B 500,000 UNIT in SODIUM CHLORIDE 0.9% IRRIGATIO 1,00... IRRIGATION ONE; DEXAMETHASONE SOD PHOSPHATE 10 MG/ML 1 ML VIAL IV ONE; LIDOCAINE 1% 20 ML VIAL (10MG/ML) FOR IV START INTRADERMA PRN; fentaNYL (PF) 50 MCG/ML 2 ML AMP IV PRN
[2019-06-17] MEDS: ONDANSETRON 4 MG/2 ML VIAL IVP ONE ×2 (07:15→11:38)
[2019-06-17] MEDS: LACTATED RINGERS 1,000 ML IV SCH (07:15)
[2019-06-17] MEDS ORDERED: GLYCOPYRROLATE 0.2 MG/ML 2 ML VIAL ONE (07:29)
[2019-06-17] MEDS ORDERED: PHENYLEPHRINE-0.9% NACL SYG 1 MG/10 ML SYRINGE ONE (07:29)
[2019-06-17] MEDS ORDERED: fentaNYL (PF) 50 MCG/ML 2 ML AMP ONE (07:29)
[2019-06-17] MEDS ORDERED: MIDAZOLAM 2 MG/2 ML VIAL ONE (07:29)
[2019-06-17] MEDS ORDERED: HYDROmorphone (PF) 1 MG/ML ONE (07:29)
[2019-06-17] MEDS ORDERED: SODIUM CHLORIDE 0.9% IRRIG 1,000 ML BTL IRRIGATION ONE (07:29)
[2019-06-17] MEDS ORDERED: ePHEDrine SULFATE/0.9% NACL/PF 50 MG/5 ML SYRINGE IV ONE (07:29)
[2019-06-17] MEDS ORDERED: NEOSTIGMINE 1 MG/ML 10 ML VIAL ONE (07:29)
[2019-06-17] MEDS ORDERED: PROPOFOL 10 MG/ML 20 ML VIAL IV ONE (07:29)
[2019-06-17] MEDS ORDERED: LIDOCAINE 1% INJ 10MG/ML (20 ML MDV) ONE (07:29)
[2019-06-17] MEDS ORDERED: SUCCINYLCHOLINE CHLORIDE 100 MG/5 ML SYR IV ONE (07:29)
[2019-06-17] MEDS ORDERED: HEPARIN SODIUM,PORCINE 10,000 UNIT/ML 1 ML VIAL ONE (07:29)
[2019-06-17] MEDS ORDERED: ROCURONIUM BROMIDE 10 MG/ML 10 ML VIAL IV ONE (07:29)
[2019-06-17] MEDS ORDERED: THROMBIN (BOVINE) 5,000 UNIT VIAL TOPICAL ONE (08:15)
[2019-06-17] MEDS ORDERED: GELATIN SPONGE,ABSORB (SMALL) 1 EACH SPONGE TOPICAL ONE (08:15)
[2019-06-17] MEDS ORDERED: LIDOCAINE 0.5%-EPI 1:200,000 50 ML VIAL SQ ONE (08:15)
[2019-06-17] MEDS ORDERED: LACTATED RINGERS 1,000 ML IV ONE ×3 (08:25→11:17)
[2019-06-17] MEDS ORDERED: MAGNESIUM HYDROXIDE 2,400 MG/10 ML CUP PO PRN (11:36)
[2019-06-17] MEDS ORDERED: BENZOCAINE/MENTHOL LOZENG 1 EACH LOZENGE MUCOUS MEM PRN (11:36)
[2019-06-17] MEDS ORDERED: HYDROcodone/APAP 5-325MG 1 EACH TAB PO PRN (11:36)
[2019-06-17] MEDS: HYDROmorphone 0.5 MG/0.5 ML SYRINGE IVP PRN ×4 (11:38→12:43)
[2019-06-17] MEDS ORDERED: traMADol 50 MG TAB PO PRN ×3 (11:40→11:41)
--- NOTE | 2019-06-17 11:51 | P.OP ---
Date of Procedure: 06/17/19 Preoperative Diagnosis: Recurrent disc herniation L4 5, spinal stenosis L3 4 L4 5, disc herniation L3 4, degenerative disc disease L3 4 L4 5, right lower extremity radiculopathy right lower extremity weakness, history of laminectomy decompression and discectomy L4 5 Postoperative Diagnosis: Same Anesthesia: GETA Pathology: none sent Condition: stable Disposition: PACU Description of Procedure: DESCRIPTION OF PROCEDURE(S): BRIEF OPERATIVE NOTE Preoperative Diagnosis: Recurrent disc herniations L4 5, spinal stenosis L3 4 L4 5, disc herniation 034, low back pain, degenerative disc disease, right lower extremity radiculopathy with weakness, history of prior laminectomy decompression and discectomy L4 5 Postoperative Diagnosis: Same Procedure: Revision Laminectomy and decompression L4 5 with discectomy Laminectomy decompression with discectomy L3 4 Minimally invasive Posterior lateral decompression and fusion L3 4 L4 5 Minimally invasive Transforaminal lumbar interbody fusion for a 360 fusion L3 4 L4 5 Discectomy for decompression L3 4 L4 5 Placement of interbody graft L3 4 L4 5 Local autogenous bone grafting Harvesting of bone marrow aspirate. The pedicle and vertebral body of L3 on the right Use of Cell Saver Use of bone graft extenders Surgeon: Dr. Monson Cinder Worker: Faheem BASURTO who is present throughout the entire the case persistence during positioning, dissection, exposure, visualization, and all crucial elements of the case as well as closure. Anesthesia: General anesthesia per Dr. Dr. Mosqueda Estimated blood loss: Approximately 150 mL with 75 given back through Cell Saver Complications: None apparent Components implanted: K2M minimally invasive pedicle [place] screw system with use of 6 screws measuring 6.5 x 50 mm and 2 rods measuring 70 mm with Edward interbody titanium cages measuring 11 and an 10 mm along with one Osteoamp sponge and 30 mL of DBX bone fibers to supplemental local autogenous and bone marrow aspirate graft Disposition: To recovery room in good stable condition. OPERATIVE INDICATIONS The patient has had severe issues in their lower back and lower extremities. 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 Since that time he has had severe worsening of his back and leg symptoms. She was found have a large disc herniation with recurrent herniation L4 5 and new disc herniation L3 4 which correlated with his back and lower Ty symptoms. He had significant disc degeneration and stenosis with right lower extremity radiculopathy and weakness in the right leg. He is not having any benefit despite aggressive conservative treatment. The patient has been through conservative treatment. We discussed various treatment options including surgery, and the patient wishes to proceed with surgery We discussed the risk, patient's alternatives and benefits of surgery including but not limited to, risk of bleeding risk of infection, risk of need for further surgery, risk of decreased, loss of motion, muscle function, malunion nonunion, hardware failure, nerve damage, paralysis, heart attack, blindness and . OPERATIVE SUMMARY After discussing all the risks, patient alternatives and benefits at length, the patient elected to proceed with surgical intervention, signed informed consent, and presented for their procedure. The patient was seen and examined in the preoperative holding area and the surgical site was marked. The patient was given antibiotics and brought to the operating room. The patient was sedated and intubated by anesthesia in standard fashion. The patient was positioned on to the operating room table in a prone position on the appropriate frame which was well-padded and well molded. We were careful to pad any bony prominences and pressure points. We were careful to maintain the patient's cervical spine and good neutral alignment and position throughout. The patient was prepped and draped in a normal standard fashion. An appropriate timeout and keystone protocol performed. We were able to proceed with the surgery. The local wound area was infiltrated with local anesthetic. I was able utilize C-arm guidance to establish appropriate position over the pedicles bilaterally at the appropriate levels at L3 4 and 5. With the appropriate levels confirmed was able to make small stab incisions over the appropriate pedicle sites bilaterally at L3 4 and 5. Utilizing C-arm in his house able to establish a Jamshidi needle over the lateral aspect of the pedicle and advanced the trocar into the pedicle being careful not to breech superiorly inferiorly medially or laterally. Position was confirmed regularly with AP and lateral images on C-arm. I was able to establish the trocar into the pedicle appropriately into the posterior aspect of the vertebral body bilaterally at the appropriate levels. This was done at each of the pedicle positions and each of the vertebrae. I was able place the guidewire into the trocar and into the vertebral body appropriately under C-arm guidance. At L3 on the right and was able to withdraw approximately 20 mL of bone marrow aspirate for supplementation of the local autogenous and bone graft later in the case. Dissection was taken down over the wire to the appropriate starting position for the screw placed. The appropriate length screw was chosen, threaded over the guidewire and screwed appropriately into the pedicle and vertebral body under C-arm guidance in excellent alignment and position with good bony purchase. This is done at each of the screw sites at the appropriate levels at L3 4 and 5 bilaterally. With the screws intact I extended the incision to connect the screw hole sites on the most symptomatic side on the right. I dissected down to establish access over the pars and lamina to the base of the spinous process. I was able to expose the facet joint. The capsule the facet was taken down and showed some facet arthrosis at the joint. I was able to use a combination of curettes and Kerrison rongeurs and a high-speed drill to take down the facet joint and do a facetectomy. He had had a prior laminectomy and decompression with discectomy at L4 5 on the left the past. On this instance we were approaching the right side for his revision laminectomy and decompression at L4 5. We approached from the right side as well at L3 4. Partial laminectomy was also performed. I was able get excellent foraminal decompression and central decompression with undermining across midline to perform a laminectomy centrally and contra laterally. As able get good central decompression. The ligamentum flavum was taken down to further decompress centrally and at bilateral neural foramen. I was able to expose the disc space and visualize the traversing nerve root. Note was made of some disc protrusion at the level causing further compression of the nerve root. I was able to establish a annulotomy at the appropriate level prote cting soft tissue and neural structures. Note was made of some disc desiccation at the disc, particularly at L4 5 and significant disc loss and L4 5. I performed a complete discectomy with accommodation of curettes and rasps and scrapers. I was able get good endplate preparation at the disc space. I sized for the appropriate size interbody spacer protecting the soft tissue and neural structures. The wound was copiously irrigated and suctioned dry. There is no evidence of any dural tear or leak. I was able to pack the disc space with local autogenous bone graft as well as a small amount of bone graft which was also placed into the interbody cage itself. Protecting the soft tissue structures and neural structures I was able place the interbody cage in good alignment and good position with good fit and fill at the interbody space. This was confirmed with C-arm guidance. This was done first at L4 5 and then at L3 4 similarly. Good hemostasis maintained. There is no evidence of any dural tear or leak. The wound was irrigated and suctioned dry. With the hardware intact, intraoperative C-arm imaging was again taken which showed good alignment and position of the hardware at the appropriate levels at L3 4 and 5. We were then able to measure, contour and place the rods and appropriate hardware bilaterally. I was able to place capcrews, tighten them down, and torque them with the torque screwdriver appropriately. With this intact I was able to place the local autogenous bone graft with additional bone graft enhancer as necessary into the posterior lateral gutters over the decorticated transverse processes and decorticated facet joints. The remainder of the bone graft was placed over the facet joint on the contralateral side after taking down the facet joint capsule. With the bone graft intact, a stable construct, and good decompression at the appropriate levels, we were able to proceed with closure. Good hemostasis was maintained. There is no evidence of dural tear or leak. The fascia was closed for a watertight closure. he subcuticular tissue was closed with absorbable suture. The wound was cleaned and dried and dressed with the appropriate dressing. The drapes were broken down. The patient was gently rolled back onto their hospital bed being careful to maintain their cervical spine and good neutral alignment and position. They were woken up by anesthesia, extubated, and brought to the recovery room in good stable condition. The patient will be admitted to the hospital for appropriate postoperative care, medical management and monitoring. We will continue to follow them closely about the postoperative course.
--- NOTE | 2019-06-17 12:00 | FL ---
EXAMINATION TYPE: FL guidance operating room, XR lumbar spine 2 or 3V DATE OF EXAM: 06/17/2019 CLINICAL HISTORY: Low back pain. TECHNIQUE: Fluoroscopy. Lumbar spine intraoperative 2 views. COMPARISON: None. FINDINGS: Fluoroscopic guidance was provided during lumbar minimal invasive surgical procedure perfo rmed by Dr. Monson. A total of 1.43 minutes of fluoroscopic time was utilized during the procedure an d 6 spot images are acquired. Images acquired show placement of bilateral interpedicular rods and scr ews and metallic disc spacers at L3-L5 levels in the lumbar spine. IMPRESSION: As Above.
[2019-06-17] MEDS: HYDROmorphone 1 MG/ML 1 ML SYRINGE IVP PRN ×2 (14:42→20:16)
[2019-06-17] MEDS ORDERED: CYCLOBENZAPRINE 10 MG TAB PO PRN (16:57)
[2019-06-17] MEDS: ONDANSETRON 4 MG/2 ML VIAL IVP PRN (18:12)
[2019-06-17] MEDS ORDERED: CYCLOBENZAPRINE 10 MG TAB PO SCH (21:00)
[2019-06-17] MEDS: METOPROLOL TARTRATE 25 MG TAB PO SCH (21:57)
[2019-06-17] MEDS: traMADol 50 MG TAB PO PRN (21:57)
[2019-06-17] MEDS: SODIUM CHLORIDE 0.9% 1,000 ML IV SCH (22:58)
[2019-06-18] MEDS: HYDROmorphone 1 MG/ML 1 ML SYRINGE IVP PRN ×3 (00:08→23:45)
[2019-06-18] MEDS: CYCLOBENZAPRINE 10 MG TAB PO PRN ×3 (00:08→15:48)
[2019-06-18] MEDS: SODIUM CHLORIDE 0.9% 1,000 ML IV SCH ×3 (03:34→11:02)
--- NOTE | 2019-06-18 07:42 | P.CONS ---
History of Present Illness - Reason for Consult Consult date: 06/17/19 Medical management Requesting physician: Alfonzo Monson - Chief Complaint Status post revision laminectomy with decompression L45 - History of Present Illness This is a 59-year-old male one of Dr. Tabor with a previous medical history significant for hypertension and hypertensive cardiovascular disease, hyperlipidemia, history of GERD, history of chronic tobacco use and dependence, patient had a chronic history of low back pain post laminectomy of L4-L5 underwent revision of decompression laminectomy of L4-L5 and laminectomy with decompression and discectomy of L3-L4 that was done by Dr. Garcia along with bone graft and we were asked to the patient for medical management. Review of Systems Constitutional: Denies anorexia, Denies chronic headaches, Denies fatigue, Denies fever, Denies lethargy, Denies weakness, Denies weight gain, Denies weight loss Eyes: denies blurred vision, denies bulging eye, denies decreased vision Ears, nose, mouth and throat: Denies dysphagia, Denies neck lump, Denies swelling in throat, Denies sore throat Cardiovascular: Denies chest pain, Denies decreased exercise tolerance, Denies dyspnea on exertion, Denies leg edema, Denies lightheadedness, Denies rapid heart beat, Denies shortness of breath, Denies syncope Respiratory: Denies congestion, Denies cough, Denies cough with sputum, Denies home oxygen, Denies respiratory infections, Denies sleep apnea, Denies snoring, Denies wheezing Gastrointestinal: Denies abdominal pain, Denies belching, Denies BRBPR, Denies heartburn, Denies melena, Denies nausea, Denies vomiting Genitourinary: Denies dysuria, Denies nocturia Musculoskeletal: Reports low back pain, Denies myalgias Musculoskeletal: absent: ankle pain, ankle stiffness, ankle swelling, elbow pain, elbow stiffness, elbow swelling, foot pain, foot stiffness, foot swelling, hand pain, hand stiffness, hand swelling, hip pain, hip stiffness, hip swelling, knee pain, knee stiffness, knee swelling, shoulder pain, shoulder stiffness, shoulder swelling, wrist pain, wrist stiffness, wrist swelling Integumentary: Denies pruritus, Denies rash Neurological: Denies numbness, Denies weakness Psychiatric: Denies anxiety, Denies depression Endocrine: Denies fatigue, Denies weight change Past Medical History Past Medical History: GERD/Reflux, Hyperlipidemia, Hypertension Additional Past Medical History / Comment(s): "CHEST PAIN - WAS DIAGNOSED WITH ACID REFLUX" History of Any Multi-Drug Resistant Organisms: None Reported Past Surgical History: Back Surgery Additional Past Surgical History / Comment(s): colonoscopy/polypectomy, egd Past Anesthesia/Blood Transfusion Reactions: No Reported Reaction Additional Past Anesthesia/Blood Transfusion Reaction / Comm: has never received any blood transfusion Smoking Status: Current every day smoker - Past Family History Mother Family Medical History: Cancer Additional Family Medical History / Comment(s): cervical cancer Father Family Medical History: Cancer Additional Family Medical History / Comment(s): lung cancer, was smoker and had expsoure to asbestos Sister(s) Family Medical History: Cancer Additional Family Medical History / Comment(s): BREAST CANCER Medications and Allergies Home Medications Medication Instructions Recorded Confirmed Type Gemfibrozil [Lopid] 600 mg PO DAILY 01/21/19 06/17/19 History Lisinopril 40 mg PO DAILY 01/21/19 06/17/19 History Lovastatin [Mevacor] 40 mg PO DAILY 01/21/19 06/17/19 History amLODIPine BESYLATE 5 mg PO DAILY 01/21/19 06/17/19 History Aspirin EC [Ecotrin Low Dose] 81 mg PO DAILY #30 tablet. 01/22/19 06/17/19 Rx Cyclobenzaprine [Flexeril] 10 mg PO BID 06/10/19 06/17/19 History Metoprolol Tartrate 25 mg PO BID 06/10/19 06/17/19 History traMADol HCL [Ultram] 50 mg PO Q6HR PRN 06/10/19 06/17/19 History Omeprazole 20 mg PO DAILY 06/17/19 06/17/19 History Allergies Allergy/AdvReac Type Severity Reaction Status Date / Time No Known Allergies Allergy Verified 06/17/19 06:40 Physical Exam Vitals: Vital Signs Temp Pulse Resp BP Pulse Ox 06/17/19 12:30 88 16 110/63 98 06/17/19 12:18 79 16 106/64 98 06/17/19 12:03 78 16 100/57 97 06/17/19 11:49 16 102/58 93 L 06/17/19 11:33 97.4 F L 84 16 97/52 96 06/17/19 06:44 97.0 F L 77 18 129/71 97 Intake and Output 06/16/19 06/17/19 06/17/19 22:59 06:59 14:59 Intake Total 3451 Output Total 235 Balance 3216 Intake: IV 3451 Output: Urine 85 Estimated Blood Loss 150 - Constitutional General appearance: average body habitus, no acute distress - EENT Eyes: anicteric sclerae, EOMI, PERRLA, no ptosis, no scleral icterus, normal appearance ENT: hearing grossly normal, NA/AT, normal oropharynx, no thrush Ears: bilateral: normal - Neck Neck: no lymphadenopathy, normal ROM, no rigidity, no stridor, no thyromegaly Carotids: bilateral: upstroke normal Thyroid: bilateral: normal size - Respiratory Respiratory: bilateral: diminished, negative: dullness, rales, rhonchi, wheezing, prolonged expiration, prolonged inspiration - Cardiovascular Rhythm: regular Heart sounds: normal: S1, S2 Abnormal Heart Sounds: no systolic murmur, no S3 Gallop, no S4 Gallop - Gastrointestinal General gastrointestinal: normal bowel sounds, soft, no splenomegaly, no tenderness, no umbilical hernia, no ventral hernia - Integumentary Integumentary: normal, normal turgor - Neurologic Neurologic: CNII-XII intact - Musculoskeletal Musculoskeletal: strength equal bilaterally - Psychiatric Psychiatric: A&O x's 3, appropriate affect, intact judgment & insight Assessment and Plan Assessment: Assessment and plan: 1. Post operative day #0 status post a revision of decompression laminectomy of L4-L5 and laminectomy with discectomy of L3-L4 with bone graft. Continue patient on current pain management as outlined by spine surgery, continue with incentive spirometer to reduce the incidence of atelectasis and healthcare associated pneumonia, physical therapy evaluation tomorrow morning, continue IV fluid over the next 24 hours, monitor the patient very closely. 2. Hypertension and hypertensive cardiovascular disease. We will continue patient on lisinopril 40 mg orally once every day as well as metoprolol 25 mg orally twice every day and amlodipine 5 mg orally once every day. 3. Hyperlipidemia. Continue patient on Lipitor 10 mg orally once every day, and fenofibrate 145 mg orally once every day. 4. GERD with esophagitis. Continue patient on omeprazole 20 mg orally once every day. 5. Chronic tobacco use and dependence. Smoking cessation and counseling an increased risk of CAD, CVA, and malignancy, plus pseudoarthrosis post- laminectomy . 6. DVT prophylaxis. Bilateral knee-high TRACEY hose and SCDs. 7. GI prophylaxis. Continue patient on PPI 8. Thank you for the consult we'll follow you.
[2019-06-18] MEDS: LACTATED RINGERS 1,000 ML IV SCH (08:15)
[2019-06-18] MEDS: amLODIPine 5 MG TAB PO SCH (08:17)
[2019-06-18] MEDS: LISINOPRIL 20 MG TAB PO SCH (08:17)
[2019-06-18] MEDS: METOPROLOL TARTRATE 25 MG TAB PO SCH ×2 (08:17→21:36)
[2019-06-18] MEDS: SENNOSIDES-DOCUSATE SODIUM 1 EACH TAB PO SCH (08:17)
[2019-06-18] MEDS: FENOFIBRATE 160 MG TAB PO SCH (08:17)
[2019-06-18] MEDS: PANTOPRAZOLE 40 MG TABLET PO SCH (08:17)
[2019-06-18] MEDS: ATORVASTATIN 10 MG TAB PO SCH (08:17)
[2019-06-18] MEDS: traMADol 50 MG TAB PO PRN ×3 (08:17→21:36)
[2019-06-18] MEDS: ASPIRIN 81 MG PO SCH (08:17)
[2019-06-18 08:58] LABS: Basophils % (A) 0 %; Eosinophils % (A) 0 %; HCT 36.8 % (39.0-53.0); HGB 12.3 gm/dL (13.0-17.5); Lymphocytes # (A) 0.9 k/uL (1.0-4.8); Lymphocytes % (A) 5 %; MCH 28.7 pg (25.0-35.0); MCHC 33.3 g/dL (31.0-37.0); MCV 86.2 fL (80.0-100.0); Mean Platelet Volume 6.5; Monocytes # (A) 0.8 k/uL (0-1.0); Monocytes % (A) 5 %; Neutrophils % (A) 89 %; Platelet Count 301 k/uL (150-450); RBC 4.28 m/uL (4.30-5.90); RDW 12.7 % (11.5-15.5); WBC 17.9 k/uL (3.8-10.6)
[2019-06-18 09:05] LABS: African American GFR (CKD) >90 (>60 ml/min/1.73 sqM); Anion Gap 11 mmol/L; Blood Urea Nitrogen 13 mg/dL (9-20); Calcium 9.1 mg/dL (8.4-10.2); Carbon Dioxide 25 mmol/L (22-30); Chloride 98 mmol/L (98-107); Glucose 98 mg/dL (74-99); Potassium 3.9 mmol/L (3.5-5.1); Sodium 134 mmol/L (137-145)
--- NOTE | 2019-06-18 09:10 | P.PN ---
Progress Note - Text Progress Note Date: 06/18/19 Postoperative day #1 Patient is seen and examined today at bedside. The patient has some pain around the surgical site as expected. Pain is being controlled with medication. He has been up out of bed he's been ambulatory in his room but is having significant spasm in his lower back. He was able to takes Flexeril but is not sure if it's helping thus far. He had disc causing urinating yesterday but is able to void on his own this morning when standing. He is not nauseous. He only was able to eat crackers since surgery thus far. Physical Exam Afebrile with stable vital signs Abdomen is soft nontender. Chest has good excursion deep and space expiration The incision site is clean dry and intact. No erythema there is no purulence. There is no active drainage there was some bleeding overnight his dressing is been reinforced. Extremities have not had neurologic change from prior to surgery. He has sustained dorsal flexion plantarflexion and EHL bilaterally Calves and thighs were soft nontender without evidence of DVT. Assessment/Plan Postoperative day #1 status post decompression and fusion L3 4 L4 5 for recurrent disc herniation with stenosis and lower extremity radiculopathy Patient is progressing as expected from the surgery. We will continue to increase the patient's mobilization with therapy. He has already been ambulatory today We will continue pain control with oral or IV medications. He has troubles with [place] in the past week may try this infiltrated was not covering his pain adequately. He has been able to void appropriately today. Many of his symptoms stem from his spasms and hopefully the Flexeril will aid with this. We'll continue to follow patient closely.
[2019-06-18] MEDS: TAMSULOSIN 0.4 MG CAP.ER.24H PO SCH (11:46)
[2019-06-18] MEDS: HYDROmorphone 0.5 MG/0.5 ML SYRINGE IVP PRN ×2 (11:46→19:07)
[2019-06-19] MEDS: SODIUM CHLORIDE 0.9% 1,000 ML IV SCH ×2 (01:26→16:08)
[2019-06-19] MEDS: LACTATED RINGERS 1,000 ML IV SCH (05:19)
[2019-06-19] MEDS: traMADol 50 MG TAB PO PRN ×3 (05:45→20:49)
[2019-06-19] MEDS: CYCLOBENZAPRINE 10 MG TAB PO PRN ×2 (05:47→20:49)
[2019-06-19] MEDS: ONDANSETRON 4 MG/2 ML VIAL IVP PRN ×2 (06:03→16:03)
[2019-06-19] MEDS: ATORVASTATIN 10 MG TAB PO SCH (07:55)
[2019-06-19] MEDS: METOPROLOL TARTRATE 25 MG TAB PO SCH ×2 (07:55→20:46)
[2019-06-19] MEDS: SENNOSIDES-DOCUSATE SODIUM 1 EACH TAB PO SCH (07:55)
[2019-06-19] MEDS: amLODIPine 5 MG TAB PO SCH (07:55)
[2019-06-19] MEDS: TAMSULOSIN 0.4 MG CAP.ER.24H PO SCH (07:55)
[2019-06-19] MEDS: FENOFIBRATE 160 MG TAB PO SCH (07:55)
[2019-06-19] MEDS: ASPIRIN 81 MG PO SCH (07:55)
[2019-06-19] MEDS: PANTOPRAZOLE 40 MG TABLET PO SCH (07:55)
[2019-06-19] MEDS: LISINOPRIL 20 MG TAB PO SCH (07:55)
--- NOTE | 2019-06-19 07:58 | P.PN ---
Subjective Progress Note Date: 06/18/19 This is a 59-year-old male one of Dr. Tabor with a previous medical history significant for hypertension and hypertensive cardiovascular disease, hyperlipidemia, history of GERD, history of chronic tobacco use and dependence, patient had a chronic history of low back pain post laminectomy of L4-L5 underwent revision of decompression laminectomy of L4-L5 and laminectomy with decompression and discectomy of L3-L4 that was done by Dr. Garcia along with bone graft and we were asked to the patient for medical management. 06/18: Patient has been afebrile, heart rate 103, blood pressure 137/72, pulse ox 96% on room air. Lab work reveals white count of 17.9, hemoglobin 12.3, sodium 134, creatinine 0.86, blood sugar 98. Patient has had frequent small urinations through the night. He does complain of suprapubic pressure. The patient has required straight cath 3 and the last one was for residual 790 ML's. Flomax will be started. Patient is complaining of back pain and neck pain. He denies any headache. He denies any nausea. Objective - Vital Signs Vital signs: Vital Signs Temp 98.6 F 06/18/19 07:15 Pulse 103 H 06/18/19 07:15 Resp 16 06/18/19 07:15 BP 137/72 06/18/19 07:15 Pulse Ox 96 06/18/19 07:15 Intake & Output 06/17/19 06/18/19 06/18/19 18:59 06:59 18:59 Intake Total 3451 380 Output Total 235 1274 Balance 3216 -894 Intake: IV 3451 Intake, IV Titration 50 Amount ceFAZolin 2 gm In Sodium 50 Chloride 0.9% 50 ml @ 100 mls/hr IVPB Q8HR [facility] Rx# :[id number] Oral 330 Output: Urine 85 275 Post Void Residual 999 Estimated Blood Loss 150 Other: Voiding Method Toilet Urinal Urinal # Voids 1 - Exam Review of Systems Constitutional: Denies anorexia, Denies chronic headaches, Denies fatigue, D enies fever, Denies lethargy, Denies weakness, Denies weight gain, Denies weight loss Eyes: denies blurred vision, denies bulging eye, denies decreased vision Ears, nose, mouth and throat: Denies dysphagia, Denies neck lump, Denies swelling in throat, Denies sore throat Cardiovascular: Denies chest pain, Denies decreased exercise tolerance, Denies dyspnea on exertion, Denies leg edema, Denies lightheadedness, Denies rapid heart beat, Denies shortness of breath, Denies syncope Respiratory: Denies congestion, Denies cough, Denies cough with sputum, Denies home oxygen, Denies respiratory infections, Denies sleep apnea, Denies snoring, Denies wheezing Gastrointestinal: Denies abdominal pain, Denies belching, Denies BRBPR, Denies heartburn, Denies melena, Denies nausea, Denies vomiting Genitourinary: Denies dysuria, reports nocturia, reports frequent urination, reports suprapubic pressure, reports incomplete bladder emptying Musculoskeletal: Reports low back pain, Denies myalgias Musculoskeletal: absent: ankle pain, ankle stiffness, ankle swelling, elbow pain, elbow stiffness, elbow swelling, foot pain, foot stiffness, foot swelling, hand pain, hand stiffness, hand swelling, hip pain, hip stiffness, hip swelling, knee pain, knee stiffness, knee swelling, shoulder pain, shoulder stiffness, shoulder swelling, wrist pain, wrist stiffness, wrist swelling Integumentary: Denies pruritus, Denies rash Neurological: Denies numbness, Denies weakness Psychiatric: Denies anxiety, Denies depression Endocrine: Denies fatigue, Denies weight change - Constitutional General appearance: average body habitus, no acute distress - EENT Eyes: anicteric sclerae, EOMI, PERRLA, no ptosis, no scleral icterus, normal appearance ENT: hearing grossly normal, NA/AT, normal oropharynx, no thrush Ears: bilateral: normal - Neck Neck: no lymphadenopathy, normal ROM, no rigidity, no stridor, no thyromegaly Carotids: bilateral: upstroke normal Thyroid: bilateral: normal size - Respiratory Respiratory: bilateral: diminished, negative: dullness, rales, rhonchi, wheezing, prolonged expiration, prolonged inspiration - Cardiovascular Rhythm: regular Heart sounds: normal: S1, S2 Abnormal Heart Sounds: no systolic murmur, no S3 Gallop, no S4 Gallop - Gastrointestinal General gastrointestinal: normal bowel sounds, soft, no splenomegaly, no tenderness, no umbilical hernia, no ventral hernia Patient is being straight cath at the time of this evaluation. - Integumentary Integumentary: normal, normal turgor - Neurologic Neurologic: CNII-XII intact - Musculoskeletal Musculoskeletal: strength equal bilaterally - Psychiatric Psychiatric: A&O x's 3, appropriate affect, intact judgment & insight - Labs CBC & Chem 7: 06/18/19 08:15 06/18/19 08:15 Labs: Abnormal Lab Results - Last 24 Hours (Table) 06/18/19 06/18/19 Range/Units 08:15 08:15 WBC 17.9 H (3.8-10.6) k/uL RBC 4.28 L (4.30-5.90) m/uL Hgb 12.3 L (13.0-17.5) gm/dL Hct 36.8 L (39.0-53.0) % Neutrophils # 16.0 H (1.3-7.7) k/uL Lymphocytes # 0.9 L (1.0-4.8) k/uL Sodium 134 L (137-145) mmol/L Assessment and Plan Plan: 1. Post operative day #1 status post a revision of decompression laminectomy of L4-L5 and laminectomy with discectomy of L3-L4 with bone graft. Continue patient on current pain management as outlined by spine surgery, continue with incentive spirometer to reduce the incidence of atelectasis and healthcare associated pneumonia, physical therapy evaluation tomorrow morning, continue IV fluid over the next 24 hours, monitor the patient very closely. 2. Hypertension and hypertensive cardiovascular disease. We will continue patient on lisinopril 40 mg orally once every day as well as metoprolol 25 mg orally twice every day and amlodipine 5 mg orally once every day. 3. Hyperlipidemia. Continue patient on Lipitor 10 mg orally once every day, and fenofibrate 145 mg orally once every day. 4. GERD with esophagitis. Continue patient on omeprazole 20 mg orally once every day. 5. Chronic tobacco use and dependence. Smoking cessation and counseling an increased risk of CAD, CVA, and malignancy, plus pseudoarthrosis post- laminectomy . 6. Acute urinary retention most likely secondary to benign prostatic hypert rophy. Patient will be started on Flomax 0.4 mg daily. 7. DVT prophylaxis. Bilateral knee-high TRACEY hose and SCDs. 8. GI prophylaxis. Continue patient on PPI Discharge plan: Return home Impression and plan of care have been directed as dictated by the signing physician. Kierra Tiwari nurse practitioner acting as scribe for signing physician.
--- NOTE | 2019-06-19 08:46 | P.PN ---
Progress Note - Text Progress Note Date: 06/19/19 Orthopedic Spine Patient is a pleasant 59-year-old male who is seen and examined at the bedside following posterior lateral decompression and fusion performed Saturday. Patient states they are doing ok postsurgically. He continues to have significant pain in the surgical sites. Because his lower extremity radiculopathy symptoms have improved today as compared to yesterday. He has had difficulty with urination postoperatively. Straight catheterization was performed multiple times yesterday. Olivera catheter was reinserted last night. He has been started on Flomax by medicine. He is also expressing some right- sided abdominal pain and distention. He is passing gas. He is currently on Senokot and milk of magnesia for constipation. He has not had much of an appetite postoperatively. He has been able to get out of bed a couple times per day. Currently does not complain of nausea, vomiting, fever, or chills. Patient states pain is being controlled with Flexeril, Ultram, and Dilaudid. He has a medical history which includes hypertension, hyperlipidemia and daily tobacco use. Physical Exam Lumbar Fusion: Status post surgical day number 2 Patient is awake, alert, and oriented 3 Vital signs stable Good chest excursion with deep inspiration and expiration Abdomen mildly soft with some distention and some pain of the right side of the abdomen with palpation; no left sided abdominal pain with palpation Dorsiflexion, plantarflexion, and extensor hallucis longus positive sustained bilaterally No signs or symptoms of DVT; no calf pain; pneumatic cuffs not currently intact bilateral lower extremities Dressing is clean, dry, and intact; no erythema, purulence, or signs of infection No significant pain with palpation around the surgical sites Neurovascularly intact bilaterally lower extremities Assessment: L3-4 and L4-5 minimally invasive posterior lateral decompression and fusion with transforaminal lumbar interbody fusion Urinary retention; Olivera catheter reinserted Right-sided abdominal pain with mild distention History of hypertension, hyperlipidemia and daily tobacco use. Plan: 1. Ambulate as tolerated; work with Physical Therapy to increase mobilization 2. Continue pain control with IV and oral medications MAPS has been reviewed today, 06/19/2019, with an Overall Overdose Risk Score of 240 with a narcotic score of 320. An "Opiod Start Talking" Forn has been signed by the patient and myself in place in the patient's chart. A prescription has been written for Ultram 50 mg take 1-2 tabs every 6 hours as needed for pain, dispensed #56. Patient should avoid anti-inflammatories over the next 6 weeks postoperatively. 3. Dressing to remain intact with Telfa and Tegaderm; patient may shower with dressing intact 4. Medical management can continue to manage patient for patient's other medical issues including urinary retention 5. Patient is currently passing gas but does have some mild distention right- sided abdominal pain. It is pain does not improve throughout the day when he begins to as well as gas, we will plan to obtain x-rays of the abdomen. 6. We will continue to follow the patient closely; once patient is able to have improvement in regards to pain control, improvement in urinary retention, and is is able to have a bowel movement, we will plan for discharge. 7. Patient can follow-up with Faheem Palomo PA-C or Dr. Noe Monson at [facility] in 2-3 weeks following discharge
--- NOTE | 2019-06-19 11:53 | XR ---
EXAMINATION TYPE: XR abdomen 2V DATE OF EXAM: 06/19/2019 11:34 AM CLINICAL HISTORY: Abdominal pain with concern for bowel obstruction. TECHNIQUE: Upright and supine images of the abdomen were obtained. COMPARISON: None. FINDINGS: Dilated loops of large bowel are seen throughout measuring up to 8.8 cm. Air and stool are noted throughout the colon. No dilated small bowel with small bowel measuring only up to 2.9 cm. Lung bases are well aerated. No evidence of pneumoperitoneum. Postsurgical changes of the lumbar spine. IMPRESSION: Gaseous dilation of the entirety of the large bowel; represent severe colonic ileus or di stal colonic obstruction. No pneumoperitoneum.
--- NOTE | 2019-06-19 13:38 | P.PN ---
Subjective Progress Note Date: 06/19/19 This is a 59-year-old male one of Dr. Tabor with a previous medical history significant for hypertension and hypertensive cardiovascular disease, hyperlipidemia, history of GERD, history of chronic tobacco use and dependence, patient had a chronic history of low back pain post laminectomy of L4-L5 underwent revision of decompression laminectomy of L4-L5 and laminectomy with decompression and discectomy of L3-L4 that was done by Dr. Garcia along with bone graft and we were asked to the patient for medical management. 06/18: Patient has been afebrile, heart rate 103, blood pressure 137/72, pulse ox 96% on room air. Lab work reveals white count of 17.9, hemoglobin 12.3, sodium 134, creatinine 0.86, blood sugar 98. Patient has had frequent small urinations through the night. He does complain of suprapubic pressure. The patient has required straight cath 3 and the last one was for residual 790 ML's. Flomax will be started. Patient is complaining of back pain and neck pain. He denies any headache. He denies any nausea. 06/19: Patient has been afebrile, heart rate 75, blood pressure 133/70, pulse ox 94% on room air. Moreno catheter has been placed for urinary retention and gregg ining adequately. Patient complains of abdominal distention and constipation. His past very little gas this morning. Abdominal x-rays have been ordered by orthopedics. Keep Moreno in place. Abdominal x-rays shows gaseous dilatation of the entirety of the large bowel, represents severe colonic ileus or distal colonic obstruction. No pneumoperitoneum. We have added in a consult for Dr. Mercado. Objective - Vital Signs Vital signs: Vital Signs Temp 98.0 F 06/19/19 01:57 Pulse 75 06/19/19 01:57 Resp 17 06/19/19 01:57 BP 133/70 06/19/19 01:57 Pulse Ox 94 L 06/19/19 01:57 Intake & Output 06/18/19 06/19/19 06/19/19 18:59 06:59 18:59 Intake Total 1025 500 Output Total 800 1975 Balance 225 -1475 Intake: Intake, IV Titration 150 Amount Sodium Chloride 0.9% 1, 150 000 ml @ 75 mls/hr IV . [id number] [facility] Rx#:[id number] Oral 875 500 Output: Urine 1975 Uretheral (Moreno) 1800 Post Void Residual 800 Other: Voiding Method Urinal Indwelling Catheter - Exam Review of Systems Constitutional: Denies anorexia, Denies chronic headaches, Denies fatigue, Denies fever, Denies lethargy, Denies weakness, Denies weight gain, Denies weight loss Eyes: denies blurred vision, denies bulging eye, denies decreased vision Ears, nose, mouth and throat: Denies dysphagia, Denies neck lump, Denies swelling in throat, Denies sore throat Cardiovascular: Denies chest pain, Denies decreased exercise tolerance, Denies dyspnea on exertion, Denies leg edema, Denies lightheadedness, Denies rapid heart beat, Denies shortness of breath, Denies syncope Respiratory: Denies congestion, Denies cough, Denies cough with sputum, Denies home oxygen, Denies respiratory infections, Denies sleep apnea, Denies snoring, Denies wheezing Gastrointestinal: Reports abdominal pain, Denies belching, Denies BRBPR, Denies heartburn, Denies melena, Denies nausea, Denies vomiting Genitourinary: Denies dysuria, reports nocturia, reports frequent urination, reports suprapubic pressure, reports incomplete bladder emptying--moreno in place Musculoskeletal: Reports low back pain, Denies myalgias Musculoskeletal: absent: ankle pain, ankle stiffness, ankle swelling, elbow pain, elbow stiffness, elbow swelling, foot pain, foot stiffness, foot swelling, hand pain, hand stiffness, hand swelling, hip pain, hip stiffness, hip swelling, knee pain, knee stiffness, knee swelling, shoulder pain, shoulder stiffness, shoulder swelling, wrist pain, wrist stiffness, wrist swelling Integumentary: Denies pruritus, Denies rash Neurological: Denies numbness, Denies weakness Psychiatric: Denies anxiety, Denies depression Endocrine: Denies fatigue, Denies weight change - Constitutional General appearance: average body habitus, no acute distress - EENT Eyes: anicteric sclerae, EOMI, PERRLA, no ptosis, no scleral icterus, normal appearance ENT: hearing grossly normal, NA/AT, normal oropharynx, no thrush Ears: bilateral: normal - Neck Neck: no lymphadenopathy, normal ROM, no rigidity, no stridor, no thyromegaly Carotids: bilateral: upstroke normal Thyroid: bilateral: normal size - Respiratory Respiratory: bilateral: diminished, negative: dullness, rales, rhonchi, wheezing, prolonged expiration, prolonged inspiration - Cardiovascular Rhythm: regular Heart sounds: normal: S1, S2 Abnormal Heart Sounds: no systolic murmur, no S3 Gallop, no S4 Gallop - Gastrointestinal General gastrointestinal: Abdominal distention, mild generalized tenderness, normal bowel sounds, soft, no splenomegaly, no tenderness, no umbilical hernia, no ventral hernia Moreno catheter draining clear carmenza urine. - Integumentary Integumentary: normal, normal turgor - Neurologic Neurologic: CNII-XII intact - Musculoskeletal Musculoskeletal: strength equal bilaterally - Psychiatric Psychiatric: A&O x's 3, appropriate affect, intact judgment & insight - Labs CBC & Chem 7: 06/18/19 08:15 06/18/19 08:15 Labs: Abnormal Lab Results - Last 24 Hours (Table) 06/18/19 06/18/19 Range/Units 08:15 08:15 WBC 17.9 H (3.8-10.6) k/uL RBC 4.28 L (4.30-5.90) m/uL Hgb 12.3 L (13.0-17.5) gm/dL Hct 36.8 L (39.0-53.0) % Neutrophils # 16.0 H (1.3-7.7) k/uL Lymphocytes # 0.9 L (1.0-4.8) k/uL Sodium 134 L (137-145) mmol/L Assessment and Plan Plan: 1. Post operative day #2 status post a revision of decompression laminectomy of L4-L5 and laminectomy with discectomy of L3-L4 with bone graft. Continue patient on current pain management as outlined by spine surgery, continue with incentive spirometer to reduce the incidence of atelectasis and healthcare associated pneumonia, physical therapy evaluation tomorrow morning, continue IV fluid over the next 24 hours, monitor the patient very closely. 2. Hypertension and hypertensive cardiovascular disease. We will continue patient on lisinopril 40 mg orally once every day as well as metoprolol 25 mg orally twice every day and amlodipine 5 mg orally once every day. 3. Hyperlipidemia. Continue patient on Lipitor 10 mg orally once every day, and fenofibrate 145 mg orally once every day. 4. GERD with esophagitis. Continue patient on omeprazole 20 mg orally once every day. 5. Chronic tobacco use and dependence. Smoking cessation and counseling an increased risk of CAD, CVA, and malignancy, plus pseudoarthrosis post-laminect herminio . 6. Acute urinary retention most likely secondary to benign prostatic hypertrophy. Patient will be started on Flomax 0.4 mg daily. Patient required Moreno catheter placement. 7. DVT prophylaxis. Bilateral knee-high TRACEY hose and SCDs. 8. GI prophylaxis. Continue patient on PPI 9. Colonic obstruction versus ileus. Consult with Dr. Mercado. Diet changed to nothing by mouth. IV fluids resumed at 100 mL per hour. Discharge plan: Return home Impression and plan of care have been directed as dictated by the signing physician. Kierra Tiwari nurse practitioner acting as scribe for signing physician.
--- NOTE | 2019-06-19 16:29 | P.GSCN ---
History of Present Illness Consult date: 06/19/19 Reason for Consult: Colonic ileus History of present illness: Patient underwent recent back surgery. Today the patient was complaining of increased bloating. Some abdominal crampy pain at times. He has passed a small amount of flatus. No bowel movement. Today's x-rays show diffuse colonic distention. Last colonoscopy 10 years ago or less. No rectal bleeding or melena. No recent change in bowel habits. Patient has been ambulating. No vomiting. White blood cell count yesterday was elevated. No history of similar events in the past. Patient was also having difficulty with urinary retention. Review of Systems The patient denies any acute changes in vision or hearing, no dysphagia or odynophagia, no chest pain or shortness of breath, no dysuria or hematuria, no headache, no runny nose, no rectal bleeding or melena, no unexplained weight loss Past Medical History Past Medical History: GERD/Reflux, Hyperlipidemia, Hypertension Additional Past Medical History / Comment(s): "CHEST PAIN - WAS DIAGNOSED WITH ACID REFLUX" History of Any Multi-Drug Resistant Organisms: None Reported Past Surgical History: Back Surgery Additional Past Surgical History / Comment(s): colonoscopy/polypectomy, egd Past Anesthesia/Blood Transfusion Reactions: No Reported Reaction Additional Past Anesthesia/Blood Transfusion Reaction / Comm: has never received any blood transfusion Smoking Status: Current every day smoker - Past Family History Mother Family Medical History: Cancer Additional Family Medical History / Comment(s): cervical cancer Father Family Medical History: Cancer Additional Family Medical History / Comment(s): lung cancer, was smoker and had expsoure to asbestos Sister(s) Family Medical History: Cancer Additional Family Medical History / Comment(s): BREAST CANCER Medications and Allergies Home Medications Medication Instructions Recorded Confirmed Type Gemfibrozil [Lopid] 600 mg PO DAILY 01/21/19 06/17/19 History Lovastatin [Mevacor] 40 mg PO DAILY 01/21/19 06/17/19 History amLODIPine BESYLATE 5 mg PO DAILY 01/21/19 06/17/19 History Aspirin EC [Ecotrin Low Dose] 81 mg PO DAILY #30 tablet. 01/22/19 06/17/19 Rx Cyclobenzaprine [Flexeril] 10 mg PO BID 06/10/19 06/17/19 History Metoprolol Tartrate 25 mg PO BID 06/10/19 06/17/19 History traMADol HCL [Ultram] 50 mg PO Q6HR PRN 06/10/19 06/17/19 History Lisinopril 40 mg PO DAILY 06/17/19 06/17/19 History Omeprazole 20 mg PO DAILY 06/17/19 06/17/19 History Cyclobenzaprine [Flexeril] 10 mg PO TID PRN #90 tab 06/19/19 Rx traMADol HCL [Ultram] 50 mg PO Q6HR PRN #56 tab 06/19/19 Rx Allergies Allergy/AdvReac Type Severity Reaction Status Date / Time No Known Allergies Allergy Verified 06/17/19 13:29 Surgical - Exam Vital Signs Temp Pulse Resp BP Pulse Ox 97.0 F L 77 18 129/71 97 06/17/19 06:44 06/17/19 06:44 06/17/19 06:44 06/17/19 06:44 06/17/19 06:44 Physical exam: General: Well-developed, well-nourished HEENT: Normocephalic, sclerae nonicteric Abdomen: Distended, mild diffuse tenderness, tympanic Rectal: No masses, air in the rectal vault Extremities: No edema Neuro: Alert and oriented Results - Labs 06/18/19 08:15 06/18/19 08:15 Assessment and Plan (1) Ileus Narrative/Plan: Continue Dulcolax suppositories. We'll place rectal tube. Repeat x-rays tomorrow. Ambulate. At [facility]. Current Visit: Yes Status: Acute Code(s): K56.7 - ILEUS, UNSPECIFIED SNOMED Code(s): 430030106
[2019-06-19] MEDS: METOCLOPRAMIDE 5 MG/ML 2 ML VIAL IVP SCH ×2 (17:01→23:28)
[2019-06-19] MEDS: BISACODYL 10 MG SUPP RECTAL SCH (17:02)
[2019-06-20] MEDS: SODIUM CHLORIDE 0.9% 1,000 ML IV SCH (00:19)
[2019-06-20] MEDS: LACTATED RINGERS 1,000 ML IV SCH (00:19)
[2019-06-20] MEDS: METOCLOPRAMIDE 5 MG/ML 2 ML VIAL IVP SCH ×4 (05:20→23:41)
--- NOTE | 2019-06-20 07:34 | P.PN ---
Progress Note - Text Progress Note Date: 06/20/19 Postoperative day #3 Patient is seen and examined today at bedside. The patient has some pain around the surgical site as expected. Pain is being controlled with medication. He has been ambulatory in his room and into the hallways in managing his back pain adequately. He still has a Olivera intact as he had significant reduction S today. 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 He said is some loose stool and a couple formed stools but he still has abdominal distention. He denies any nausea or vomiting. Physical Exam Afebrile with stable vital signs Abdomen is distended but nontender. Olivera catheter is intact. Chest has good excursion deep and space expiration The incision site is clean dry and intact. No erythema there is no purulence. Extremities have not had neurologic change from prior to surgery. Calves and thighs were soft nontender without evidence of DVT. Assessment/Plan Postoperative day #3 status post minimally invasive decompression and fusion L3 4 L4 5 for his recurrent stenosis with disc herniation and lower extremity radiculopathy Patient is progressing slowly from the surgery overall. He is doing adequately in terms of his back and his lower extremities his incision is healing well and he is been able to be mobile. We will continue to increase the patient's mobilization with therapy. His course has been slowed due to his postop ileus and his inability to urinate. He did have a bowel movement overnight albeit small he still may be moving in the right direction. Surgery and consults recreations are appreciated. A Olivera catheter still in contact with swathi hartley hopefully we'll be able to di scontinue that to see if he is able to void on his own. We will continue pain control with oral or IV medications. We'll continue to follow patient closely.
[2019-06-20] MEDS: traMADol 50 MG TAB PO PRN ×2 (08:29→17:01)
--- NOTE | 2019-06-20 08:35 | XR ---
EXAMINATION TYPE: XR abdomen 2V , 4 VIEWS DATE OF EXAM ORDERED: 06/20/2019 HISTORY: Follow-up ileus. COMPARISON: Previous study dated 06/19/2019. FINDINGS: Lung bases are clear. There is been a previous interpedicular fusion extending from L3 to L5. There continues to be mild gaseous distention of the large bowel. There are scattered air-fluid level s. There is no evidence of free air. There is not significant small bowel distention. There are phleb oliths within the pelvis. IMPRESSION: CONTINUING GASEOUS DISTENTION OF THE ENTIRE COLON MAY REPRESENT COLONIC ILEUS OR DISTAL COLONIC OBSTR UCTION.
[2019-06-20 09:29] LABS: ALT 25 U/L (21-72); AST 30 U/L (17-59); African American GFR (CKD) >90 (>60 ml/min/1.73 sqM); Albumin 3.5 g/dL (3.5-5.0); Alkaline Phosphatase 89 U/L (38-126); Anion Gap 11 mmol/L; Blood Urea Nitrogen 21 mg/dL (9-20); Calcium 8.9 mg/dL (8.4-10.2); Carbon Dioxide 27 mmol/L (22-30); Chloride 101 mmol/L (98-107); Glucose 84 mg/dL (74-99); Magnesium 2.4 mg/dL (1.6-2.3); Potassium 4.1 mmol/L (3.5-5.1); Sodium 139 mmol/L (137-145); Total Bilirubin 0.6 mg/dL (0.2-1.3); Total Protein 6.3 g/dL (6.3-8.2)
[2019-06-20 10:13] LABS: Basophils % (A) 0 %; Eosinophils # (A) 0.1 k/uL (0-0.7); Eosinophils % (A) 1 %; HCT 37.6 % (39.0-53.0); HGB 12.7 gm/dL (13.0-17.5); Lymphocytes # (A) 1.1 k/uL (1.0-4.8); Lymphocytes % (A) 8 %; MCH 29.5 pg (25.0-35.0); MCHC 33.8 g/dL (31.0-37.0); MCV 87.1 fL (80.0-100.0); Mean Platelet Volume 7.4; Monocytes # (A) 0.8 k/uL (0-1.0); Monocytes % (A) 5 %; Neutrophils # (A) 12.7 k/uL (1.3-7.7); Neutrophils % (A) 86 %; Platelet Count 401 k/uL (150-450); RBC 4.32 m/uL (4.30-5.90); RDW 12.8 % (11.5-15.5); WBC 14.8 k/uL (3.8-10.6)
[2019-06-20] MEDS ORDERED: POTASSIUM PHOSPHATE 10 MMOL in SODIUM CHLORIDE 0.9% 250 ML IV ONE (10:22)
[2019-06-20] MEDS ORDERED: Phosphorus Replacement Protoco 1 EACH MISC MISCELLANE PRN (10:22)
--- NOTE | 2019-06-20 10:25 | P.PN ---
Subjective Progress Note Date: 06/20/19 Principal diagnosis: Colonic ileus Patient appears to be doing better today. He states his abdominal bloating is decreased as well as any abdominal discomfort. White blood cell count 14.8. Electrolytes look good with the exception of his phosphorus being low at 2.0. He did pass a large volume of flatus with a small amount of stool. Olivera catheter remains intact as well. Appetite is slightly improved. Objective - Vital Signs Vital signs: Vital Signs Temp 98.9 F 06/20/19 08:15 Pulse 101 H 06/20/19 08:15 Resp 20 06/20/19 08:15 BP 151/75 06/20/19 08:15 Pulse Ox 98 06/20/19 08:15 Intake & Output 06/19/19 06/20/19 06/20/19 18:59 06:59 18:59 Intake Total 600 Output Total 500 2375 Balance 100 -2375 Intake: Intake, IV Titration 200 Amount Sodium Chloride 0.9% 1, 200 000 ml @ 100 mls/hr IV . Q10H [facility] Rx#:[id number] Oral 400 Output: Urine 500 2375 Uretheral (Olivera) 500 1900 Other: Voiding Method Indwelling Catheter Indwelling Catheter # Bowel Movements 2 - Exam Abdomen: Soft, mild distention, tympany present, mild use tenderness - Labs CBC & Chem 7: 06/20/19 08:38 06/20/19 08:38 Labs: Abnormal Lab Results - Last 24 Hours (Table) 06/20/19 06/20/19 Range/Units 08:38 08:38 WBC 14.8 H (3.8-10.6) k/uL Hgb 12.7 L (13.0-17.5) gm/dL Hct 37.6 L (39.0-53.0) % Neutrophils # 12.7 H (1.3-7.7) k/uL BUN 21 H (9-20) mg/dL Phosphorus 2.0 L (2.5-4.5) mg/dL Magnesium 2.4 H (1.6-2.3) mg/dL Assessment and Plan (1) Ileus Narrative/Plan: Begin clear liquids without carbonation. Encouraged patient to take liquids and sparingly. Supplement low phosphorus level. Continue Reglan and Dulcolax. Current Visit: Yes Status: Acute Code(s): K56.7 - ILEUS, UNSPECIFIED SNOMED Code(s): 723062870
[2019-06-20] MEDS ORDERED: POTASSIUM PHOSPHATE 10 MMOL in SODIUM CHLORIDE 0.9% 250 ML IV SCH (10:30)
[2019-06-20] MEDS: FENOFIBRATE 160 MG TAB PO SCH (11:00)
[2019-06-20] MEDS: LISINOPRIL 20 MG TAB PO SCH (11:00)
[2019-06-20] MEDS: PANTOPRAZOLE 40 MG TABLET PO SCH (11:00)
[2019-06-20] MEDS: ATORVASTATIN 10 MG TAB PO SCH (11:00)
[2019-06-20] MEDS: amLODIPine 5 MG TAB PO SCH (11:01)
[2019-06-20] MEDS: BISACODYL 10 MG SUPP RECTAL SCH ×2 (11:01→20:57)
[2019-06-20] MEDS: METOPROLOL TARTRATE 25 MG TAB PO SCH ×2 (11:01→20:57)
[2019-06-20] MEDS: SENNOSIDES-DOCUSATE SODIUM 1 EACH TAB PO SCH (11:01)
[2019-06-20] MEDS: ASPIRIN 81 MG PO SCH (11:01)
[2019-06-20] MEDS: TAMSULOSIN 0.4 MG CAP.ER.24H PO SCH (11:01)
[2019-06-20] MEDS: POTASSIUM PHOSPHATE 10 MMOL in SODIUM CHLORIDE 0.9% 250 ML IV SCH ×2 (11:17→18:05)
[2019-06-20] MEDS: HYDROmorphone 1 MG/ML 1 ML SYRINGE IVP PRN (11:28)
--- NOTE | 2019-06-20 22:13 | P.PN ---
Subjective Progress Note Date: 06/20/19 This is a 59-year-old male one of Dr. Tabor with a previous medical history significant for hypertension and hypertensive cardiovascular disease, hyperlipidemia, history of GERD, history of chronic tobacco use and dependence, patient had a chronic history of low back pain post laminectomy of L4-L5 underwent revision of decompression laminectomy of L4-L5 and laminectomy with decompression and discectomy of L3-L4 that was done by Dr. Garcia along with bone graft and we were asked to the patient for medical management. 06/18: Patient has been afebrile, heart rate 103, blood pressure 137/72, pulse ox 96% on room air. Lab work reveals white count of 17.9, hemoglobin 12.3, sodium 134, creatinine 0.86, blood sugar 98. Patient has had frequent small urinations through the night. He does complain of suprapubic pressure. The patient has required straight cath 3 and the last one was for residual 790 ML's. Flomax will be started. Patient is complaining of back pain and neck pain. He denies any headache. He denies any nausea. 06/19: Patient has been afebrile, heart rate 75, blood pressure 133/70, pulse ox 94% on room air. Moreno catheter has been placed for urinary retention and dra roing adequately. Patient complains of abdominal distention and constipation. His past very little gas this morning. Abdominal x-rays have been ordered by orthopedics. Keep Moreno in place. Abdominal x-rays shows gaseous dilatation of the entirety of the large bowel, represents severe colonic ileus or distal colonic obstruction. No pneumoperitoneum. We have added in a consult for Dr. Mercado. 06/20, patient complains off still abdominal distention, small bowel movement, large flat this today, patient still has an indwelling Moreno catheter, for urinary retention, abdominal discomfort is diminished today, diminished appetite, no vomiting, no nausea, patient feels full, clear liquid diet started, folic acid will be expected to be discontinued in the next 1-2 days after resolution off ileus, patient is on tamsulosin patient denies any fever no chills, no cough no chest pain WBC count decreased to 14.8, creatinine 0.76 no urinalysis sent, will obtained for one Review of Systems Constitutional: Denies anorexia, Denies chronic headaches, Denies fatigue, Denies fever, Denies lethargy, Denies weakness, Denies weight gain, Denies weight loss Eyes: denies blurred vision, denies bulging eye, denies decreased vision Ears, nose, mouth and throat: Denies dysphagia, Denies neck lump, Denies swelling in throat, Denies sore throat Cardiovascular: Denies chest pain, Denies decreased exercise tolerance, Denies dyspnea on exertion, Denies leg edema, Denies lightheadedness, Denies rapid heart beat, Denies shortness of breath, Denies syncope Respiratory: Denies congestion, Denies cough, Denies cough with sputum, Denies home oxygen, Denies respiratory infections, Denies sleep apnea, Denies snoring, Denies wheezing Gastrointestinal: Reports abdominal pain, Denies belching, Denies BRBPR, Denies heartburn, Denies melena, Denies nausea, Denies vomiting Genitourinary: Denies dysuria, reports nocturia, reports frequent urination, reports suprapubic pressure, reports incomplete bladder emptying--moreno in place Musculoskeletal: Reports low back pain, Denies myalgias Musculoskeletal: absent: ankle pain, ankle stiffness, ankle swelling, elbow pain, elbow stiffness, elbow swelling, foot pain, foot stiffness, foot swelling, hand pain, hand stiffness, hand swelling, hip pain, hip stiffness, hip swelling, knee pain, knee stiffness, knee swelling, shoulder pain, shoulder stiffness, shoulder swelling, wrist pain, wrist stiffness, wrist swelling Integumentary: Denies pruritus, Denies rash Neurological: Denies numbness, Denies weakness Psychiatric: Denies anxiety, Denies depression Endocrine: Denies fatigue, Denies weight change Objective - Vital Signs Vital signs: Vital Signs Temp 98.1 F 06/20/19 21:31 Pulse 94 06/20/19 21:31 Resp 17 06/20/19 21:31 BP 145/77 06/20/19 21:31 Pulse Ox 98 06/20/19 21:31 Intake & Output 06/20/19 06/20/19 06/21/19 06:59 18:59 06:59 Intake Total 1120 180 Output Total 2375 600 Balance -2375 1120 -420 Intake: IV 800 Sodium Chloride 0.9% 1, 800 000 ml @ 100 mls/hr IV . Q10H [facility] Rx#:[id number] Oral 320 180 Output: Urine 2375 600 Uretheral (Moreno) 1900 Other: Voiding Method Indwelling Catheter Indwelling Catheter # Bowel Movements 2 - Constitutional General appearance: Present: average body habitus, cooperative - EENT Eyes: Present: anicteric sclerae, EOMI, PERRLA, dentition normal ENT: Present: hearing grossly normal, NA/AT, normal oropharynx - Neck Neck: Present: normal ROM - Respiratory Respiratory: bilateral: CTA, negative: diminished, dullness, rales, rhonchi, wheezing, prolonged expiration, prolonged inspiration - Cardiovascular Rhythm: regular Heart sounds: normal: S1, S2 Abnormal Heart Sounds: Absent: systolic murmur, diastolic murmur, rub, S3 Gallop, S4 Gallop, click, other - Gastrointestinal General gastrointestinal: Present: normal bowel sounds, soft - Integumentary Integumentary: Present: decreased turgor, normal - Neurologic Neurologic: Present: CNII-XII intact - Musculoskeletal Musculoskeletal: Present: gait normal, strength equal bilaterally - Psychiatric Psychiatric: Present: A&O x's 3, appropriate affect, intact judgment & insight - Labs CBC & Chem 7: 06/20/19 08:38 06/20/19 08:38 Labs: Abnormal Lab Results - Last 24 Hours (Table) 06/20/19 06/20/19 Range/Units 08:38 08:38 WBC 14.8 H (3.8-10.6) k/uL Hgb 12.7 L (13.0-17.5) gm/dL Hct 37.6 L (39.0-53.0) % Neutrophils # 12.7 H (1.3-7.7) k/uL BUN 21 H (9-20) mg/dL Phosphorus 2.0 L (2.5-4.5) mg/dL Magnesium 2.4 H (1.6-2.3) mg/dL Assessment and Plan Plan: Assessment and Plan Plan: 1. Post operative day #3 status post a revision of decompression laminectomy of L4-L5 and laminectomy with discectomy of L3-L4 with bone graft. Continue patient on current pain management as outlined by spine surgery, continue with incentive spirometer to reduce the incidence of atelectasis and healthcare associated pneumonia, physical therapy evaluation tomorrow morning, continue IV fluid over the next 24 hours, monitor the patient very closely. 2. Hypertension and hypertensive cardiovascular disease. We will continue patient on lisinopril 40 mg orally once every day as well as metoprolol 25 mg orally twice every day and amlodipine 5 mg orally once every day. 3. Hyperlipidemia. Continue patient on Lipitor 10 mg orally once every day, and fenofibrate 145 mg orally once every day. 4. GERD with esophagitis. Continue patient on omeprazole 20 mg orally once every day. 5. Chronic tobacco use and dependence. Smoking cessation and counseling an increased risk of CAD, CVA, and malignancy, plus pseudoarthrosis post- laminectomy . 6. Acute urinary retention most likely secondary to benign prostatic hypertrophy. Patient will be started on Flomax 0.4 mg daily. Patient required Moreno catheter placement. Plan for discontinue after colonic ileus resolves, next 1-2 days most likely 7. DVT prophylaxis. Bilateral knee-high TRACEY hose and SCDs. 8. GI prophylaxis. Continue patient on PPI 9. Colonic obstruction versus ileus. Consult with Dr. Mercado. Diet changed to nothing by mouth. IV fluids resumed at 100 mL per hour. Discharge plan: Return home
[2019-06-21] MEDS: CYCLOBENZAPRINE 10 MG TAB PO PRN ×2 (00:06→21:46)
[2019-06-21] MEDS: LACTATED RINGERS 1,000 ML IV SCH (03:52)
[2019-06-21] MEDS: SODIUM CHLORIDE 0.9% 1,000 ML IV SCH ×3 (03:52→21:48)
[2019-06-21] MEDS: METOCLOPRAMIDE 5 MG/ML 2 ML VIAL IVP SCH ×3 (05:32→18:15)
[2019-06-21] MEDS: traMADol 50 MG TAB PO PRN ×2 (05:32→18:19)
[2019-06-21 06:34] LABS: Appearance,Urine Clear (Clear); Bacteria,Urine Rare /hpf; Bilirubin,Urine Negative (Negative); Blood,Urine Small (Negative); Color,Urine Yellow; Glucose,Urine (UA) Negative (Negative); Hyaline Casts,Urine 3 /lpf (0-2); Ketones,Urine 2+ (Negative); Leukocyte Esterase,Urine Negative (Negative); Mucus,Urine Rare /hpf; Nitrite,Urine Negative (Negative); Protein,Urine Trace (Negative); RBC,Urine 28 /hpf (0-5); Specific Gravity,Urine 1.017 (1.001-1.035); Squamous Epithelial Cell,Urine <1 /hpf (0-4); Urobilinogen,Urine <2.0 mg/dL (<2.0)
--- NOTE | 2019-06-21 08:05 | P.PN ---
Subjective Progress Note Date: 06/21/19 Principal diagnosis: Colonic ileus Patient has no new complaints. Still having mild abdominal discomfort. He states he once again had a small stool and flatus last night. He says his abdominal bloating today is about the same as it was the day before. Still says he feels better than it was 2 days ago. Today's labs are pending. He is afebrile. No tachycardia currently. Olivera catheter remains in place. Objective - Vital Signs Vital signs: Vital Signs Temp 98.1 F 06/21/19 07:27 Pulse 97 06/21/19 07:27 Resp 16 06/21/19 07:27 BP 152/76 06/21/19 07:27 Pulse Ox 98 06/21/19 07:27 Intake & Output 06/20/19 06/21/19 06/21/19 18:59 06:59 18:59 Intake Total 1120 1660 Output Total 1100 Balance 1120 560 Intake: IV 800 Sodium Chloride 0.9% 1, 800 000 ml @ 100 mls/hr IV . Q10H KATLIN Rx#:[id number] Intake, IV Titration 1000 Amount Sodium Chloride 0.9% 1, 1000 000 ml @ 100 mls/hr IV . Q10H KATLIN Rx#:[id number] Oral 320 660 Output: Urine 1100 Other: Voiding Method Indwelling Catheter - Exam Abdomen: Soft, distended, tympanic, mild diffuse tenderness nonlocalized, degree of distention seems slightly improved from yesterday - Labs CBC & Chem 7: 06/20/19 08:38 06/20/19 08:38 Labs: Abnormal Lab Results - Last 24 Hours (Table) 06/20/19 06/20/19 06/21/19 Range/Units 08:38 08:38 05:30 WBC 14.8 H (3.8-10.6) k/uL Hgb 12.7 L (13.0-17.5) gm/dL Hct 37.6 L (39.0-53.0) % Neutrophils # 12.7 H (1.3-7.7) k/uL BUN 21 H (9-20) mg/dL Phosphorus 2.0 L (2.5-4.5) mg/dL Magnesium 2.4 H (1.6-2.3) mg/dL Urine Protein Trace H (Negative) Urine Ketones 2+ H (Negative) Urine Blood Small H (Negative) Urine RBC 28 H (0-5) /hpf Urine Bacteria Rare H (None) /hpf Hyaline Casts 3 H (0-2) /lpf Urine Mucus Rare H (None) /hpf Assessment and Plan (1) Ileus Narrative/Plan: Patient's ileus is persisting. He is having some bowel function however. Continue clear liquids only. Encouraged patient to chew gum. Continue twice a day Dulcolax suppositories. If symptoms persist may require unprepped barium enema although distal obstruction thought to be unlikely given the clinical history. Current Visit: Yes Status: Acute Code(s): K56.7 - ILEUS, UNSPECIFIED SNOMED Code(s): 613313343
[2019-06-21 08:38] LABS: African American GFR (CKD) >90 (>60 ml/min/1.73 sqM); Anion Gap 13 mmol/L; Blood Urea Nitrogen 18 mg/dL (9-20); Calcium 8.6 mg/dL (8.4-10.2); Carbon Dioxide 21 mmol/L (22-30); Chloride 104 mmol/L (98-107); Glucose 93 mg/dL (74-99); Potassium 3.7 mmol/L (3.5-5.1); Sodium 138 mmol/L (137-145)
[2019-06-21 08:53] LABS: Basophils # (A) 0.1 k/uL (0-0.2); Basophils % (A) 1 %; Eosinophils # (A) 0.2 k/uL (0-0.7); Eosinophils % (A) 1 %; HCT 37.9 % (39.0-53.0); HGB 12.8 gm/dL (13.0-17.5); Lymphocytes # (A) 1.5 k/uL (1.0-4.8); Lymphocytes % (A) 14 %; MCH 29.7 pg (25.0-35.0); MCHC 33.7 g/dL (31.0-37.0); MCV 88.1 fL (80.0-100.0); Mean Platelet Volume 6.9; Monocytes # (A) 0.6 k/uL (0-1.0); Monocytes % (A) 6 %; Neutrophils # (A) 8.5 k/uL (1.3-7.7); Neutrophils % (A) 77 %; Platelet Count 431 k/uL (150-450); RDW 13.9 % (11.5-15.5); WBC 11.1 k/uL (3.8-10.6)
--- NOTE | 2019-06-21 10:16 | P.PN ---
Progress Note - Text Progress Note Date: 06/21/19 Postoperative day #4 Patient is seen and examined today at bedside. The patient has some pain around the surgical site as expected. He is still having significant spasm at his back toward the right side when he tries to move around but he is able to get around adequately Pain is being controlled with medication. He says he is still on liquids and is not vomiting. He did have a very small bowel movement and is passing gas. He still has distention his abdomen Physical Exam Afebrile with stable vital signs Abdomen is soft nontender. Chest has good excursion deep and space expiration The incision site is clean dry and intact. No erythema there is no purulence. The wound site is clear Extremities have not had neurologic change from prior to surgery. He has sustained dorsiflexion plantar flexion and EHL intact Calves and thighs were soft nontender without evidence of DVT. Assessment/Plan Postoperative day #4 status post middle evasive decompression and fusion L3 4 L4 5 for his recurrent stenosis with disc herniation and lower extremity radiculopathy Patient is progressing somewhat slowly from the surgery with his issues of ileus and urinary retention. He says his Olivera intact and hopefully we can taken up tomorrow morning and see if he is able to urinate on his own. He still has persistent ileus and is being followed for by surgery for this. He is tolerating oral liquids adequately We will continue to increase the patient's mobilization with therapy. We will continue pain control with oral or IV medications. We'll continue to follow patient closely.
[2019-06-21] MEDS: METOPROLOL TARTRATE 25 MG TAB PO SCH ×2 (10:48→21:35)
[2019-06-21] MEDS: ASPIRIN 81 MG PO SCH (10:48)
[2019-06-21] MEDS: LISINOPRIL 20 MG TAB PO SCH (10:48)
[2019-06-21] MEDS: FENOFIBRATE 160 MG TAB PO SCH (10:48)
[2019-06-21] MEDS: PANTOPRAZOLE 40 MG TABLET PO SCH (10:48)
[2019-06-21] MEDS: TAMSULOSIN 0.4 MG CAP.ER.24H PO SCH (10:48)
[2019-06-21] MEDS: amLODIPine 5 MG TAB PO SCH (10:49)
[2019-06-21] MEDS: SENNOSIDES-DOCUSATE SODIUM 1 EACH TAB PO SCH (10:49)
[2019-06-21] MEDS: ATORVASTATIN 10 MG TAB PO SCH (10:49)
[2019-06-21] MEDS: HYDROmorphone 1 MG/ML 1 ML SYRINGE IVP PRN (10:54)
[2019-06-21] MEDS: BISACODYL 10 MG SUPP RECTAL SCH ×2 (10:57→21:35)
[2019-06-21] MEDS: MAG HYDROX/AL HYDROX/SIMETH 30 ML CUP PO SCH ×2 (18:15→21:35)
--- NOTE | 2019-06-21 18:38 | P.PN ---
Subjective Progress Note Date: 06/21/19 This is a 59-year-old male one of Dr. Tabor with a previous medical history significant for hypertension and hypertensive cardiovascular disease, hyperlipidemia, history of GERD, history of chronic tobacco use and dependence, patient had a chronic history of low back pain post laminectomy of L4-L5 underwent revision of decompression laminectomy of L4-L5 and laminectomy with decompression and discectomy of L3-L4 that was done by Dr. Garcia along with bone graft and we were asked to the patient for medical management. 06/18: Patient has been afebrile, heart rate 103, blood pressure 137/72, pulse ox 96% on room air. Lab work reveals white count of 17.9, hemoglobin 12.3, sodium 134, creatinine 0.86, blood sugar 98. Patient has had frequent small urinations through the night. He does complain of suprapubic pressure. The patient has required straight cath 3 and the last one was for residual 790 ML's. Flomax will be started. Patient is complaining of back pain and neck pain. He denies any headache. He denies any nausea. 06/19: Patient has been afebrile, heart rate 75, blood pressure 133/70, pulse ox 94% on room air. Moreno catheter has been placed for urinary retention and dra roing adequately. Patient complains of abdominal distention and constipation. His past very little gas this morning. Abdominal x-rays have been ordered by orthopedics. Keep Moreno in place. Abdominal x-rays shows gaseous dilatation of the entirety of the large bowel, represents severe colonic ileus or distal colonic obstruction. No pneumoperitoneum. We have added in a consult for Dr. Mercado. 06/20, patient complains off still abdominal distention, small bowel movement, large flat this today, patient still has an indwelling Moreno catheter, for urinary retention, abdominal discomfort is diminished today, diminished appetite, no vomiting, no nausea, patient feels full, clear liquid diet started, folic acid will be expected to be discontinued in the next 1-2 days after resolution off ileus, patient is on tamsulosin patient denies any fever no chills, no cough no chest pain WBC count decreased to 14.8, creatinine 0.76 no urinalysis sent, will obtained for one 06/21, abdominal distention seems to somehow improved, however he still is tympanitic on exam, patient takes is able to move minimal amount of bowel movement, and some flat this today. Patient denies any nausea, still with no a ppetite, urine is still draining through a Moreno catheter, were planning on adding Maalox plus today and discontinued the following catheter at 10 PM tonight patient's ambulating without difficulties, no neuropathy, we'll going to check for postvoid residuals after the Moreno cath removal tonight Review of Systems Constitutional: Denies anorexia, Denies chronic headaches, Denies fatigue, Denies fever, Denies lethargy, Denies weakness, Denies weight gain, Denies weight loss Eyes: denies blurred vision, denies bulging eye, denies decreased vision Ears, nose, mouth and throat: Denies dysphagia, Denies neck lump, Denies swelling in throat, Denies sore throat Cardiovascular: Denies chest pain, Denies decreased exercise tolerance, Denies dyspnea on exertion, Denies leg edema, Denies lightheadedness, Denies rapid heart beat, Denies shortness of breath, Denies syncope Respiratory: Denies congestion, Denies cough, Denies cough with sputum, Denies home oxygen, Denies respiratory infections, Denies sleep apnea, Denies snoring, Denies wheezing Gastrointestinal: Reports abdominal pain, Denies belching, Denies BRBPR, Denies heartburn, Denies melena, Denies nausea, Denies vomiting Genitourinary: Denies dysuria, reports nocturia, reports frequent urination, reports suprapubic pressure, reports incomplete bladder emptying--moreno in place Musculoskeletal: Reports low back pain, Denies myalgias Musculoskeletal: absent: ankle pain, ankle stiffness, ankle swelling, elbow pain, elbow stiffness, elbow swelling, foot pain, foot stiffness, foot swelling, hand pain, hand stiffness, hand swelling, hip pain, hip stiffness, hip swelling, knee pain, knee stiffness, knee swelling, shoulder pain, shoulder stiffness, shoulder swelling, wrist pain, wrist stiffness, wrist swelling Integumentary: Denies pruritus, Denies rash Neurological: Denies numbness, Denies weakness Psychiatric: Denies anxiety, Denies depression Endocrine: Denies fatigue, Denies weight change Objective - Vital Signs Vital signs: Vital Signs Temp 98.6 F 06/21/19 14:12 Pulse 88 06/21/19 14:12 Resp 16 06/21/19 14:12 BP 150/75 06/21/19 14:12 Pulse Ox 99 06/21/19 14:12 Intake & Output 06/20/19 06/21/19 06/21/19 18:59 06:59 18:59 Intake Total 1120 1660 360 Output Total 1100 900 Balance 1120 560 -540 Intake: IV 800 Sodium Chloride 0.9% 1, 800 000 ml @ 100 mls/hr IV . Q10H KATLIN Rx#:[id number] Intake, IV Titration 1000 Amount Sodium Chloride 0.9% 1, 1000 000 ml @ 100 mls/hr IV . Q10H KATLIN Rx#:[id number] Oral 320 660 360 Output: Urine 1100 900 Uretheral (Moreno) 500 Other: Voiding Method Indwelling Catheter Indwelling Catheter - Constitutional General appearance: Present: cooperative, no acute distress - EENT Eyes: Present: anicteric sclerae, EOMI, PERRLA, dentition normal, normal appearance ENT: Present: NA/AT, normal oropharynx - Neck Neck: Present: normal ROM - Respiratory Respiratory: bilateral: CTA, negative: diminished, dullness, rales, rhonchi - Cardiovascular Rhythm: regular Heart sounds: normal: S1, S2 Abnormal Heart Sounds: Absent: systolic murmur, diastolic murmur, rub, S3 Gallop, S4 Gallop, click, other - Gastrointestinal General gastrointestinal: Present: normal bowel sounds, soft - Integumentary Integumentary: Present: normal, normal turgor - Neurologic Neurologic: Present: CNII-XII intact - Musculoskeletal Musculoskeletal: Present: gait normal, strength equal bilaterally - Psychiatric Psychiatric: Present: A&O x's 3, appropriate affect, intact judgment & insight - Labs CBC & Chem 7: 06/21/19 07:58 06/21/19 07:58 Labs: Abnormal Lab Results - Last 24 Hours (Table) 06/21/19 06/21/19 06/21/19 Range/Units 05:30 07:58 07:58 WBC 11.1 H (3.8-10.6) k/uL Hgb 12.8 L (13.0-17.5) gm/dL Hct 37.9 L (39.0-53.0) % Neutrophils # 8.5 H (1.3-7.7) k/uL Carbon Dioxide 21 L (22-30) mmol/L Urine Protein Trace H (Negative) Urine Ketones 2+ H (Negative) Urine Blood Small H (Negative) Urine RBC 28 H (0-5) /hpf Urine Bacteria Rare H (None) /hpf Hyaline Casts 3 H (0-2) /lpf Urine Mucus Rare H (None) /hpf Assessment and Plan Plan: Assessment and Plan Plan: 1. Post operative day #4 status post a revision of decompression laminectomy of L4-L5 and laminectomy with discectomy of L3-L4 with bone graft. Continue patient on current pain management as outlined by spine surgery, continue with incentive spirometer to reduce the incidence of atelectasis and healthcare associated pneumonia, physical therapy evaluation tomorrow morning, continue IV fluid over the next 24 hours, monitor the patient very closely. 2. Hypertension and hypertensive cardiovascular disease. We will continue patient on lisinopril 40 mg orally once every day as well as metoprolol 25 mg orally twice every day and amlodipine 5 mg orally once every day. 3. Hyperlipidemia. Continue patient on Lipitor 10 mg orally once every day, and fenofibrate 145 mg orally once every day. 4. GERD with esophagitis. Continue patient on omeprazole 20 mg orally once every day. 5. Chronic tobacco use and dependence. Smoking cessation and counseling an increased risk of CAD, CVA, and malignancy, plus pseudoarthrosis post- laminectomy . 6. Acute urinary retention most likely secondary to benign prostatic hypertrophy. Patient will be started on Flomax 0.4 mg daily. Patient required Moreno catheter placement. Plan for discontinue after colonic ileus resolves, next 1-2 days most likely 7. DVT prophylaxis. Bilateral knee-high TRACEY hose and SCDs. 8. GI prophylaxis. Continue patient on PPI 9. Colonic obstruction versus ileus. Consult with Dr. Mercado. Diet changed to nothing by mouth. IV fluids resumed at 100 mL per hour. Discharge plan: Return home
[2019-06-22] MEDS: METOCLOPRAMIDE 5 MG/ML 2 ML VIAL IVP SCH ×4 (00:14→17:20)
[2019-06-22] MEDS: traMADol 50 MG TAB PO PRN ×4 (00:21→21:32)
[2019-06-22] MEDS: LACTATED RINGERS 1,000 ML IV SCH (03:06)
[2019-06-22] MEDS: HYDROmorphone 1 MG/ML 1 ML SYRINGE IVP PRN (03:10)
[2019-06-22] MEDS: SODIUM CHLORIDE 0.9% 1,000 ML IV SCH ×2 (05:53→16:56)
[2019-06-22] MEDS: PANTOPRAZOLE 40 MG TABLET PO SCH (08:19)
[2019-06-22] MEDS: TAMSULOSIN 0.4 MG CAP.ER.24H PO SCH ×2 (08:19→21:32)
[2019-06-22] MEDS: ASPIRIN 81 MG PO SCH (08:19)
[2019-06-22] MEDS: BISACODYL 10 MG SUPP RECTAL SCH ×3 (08:19→21:32)
[2019-06-22] MEDS: LISINOPRIL 20 MG TAB PO SCH (08:19)
[2019-06-22] MEDS: amLODIPine 5 MG TAB PO SCH (08:19)
[2019-06-22] MEDS: ATORVASTATIN 10 MG TAB PO SCH (08:19)
[2019-06-22] MEDS: MAG HYDROX/AL HYDROX/SIMETH 30 ML CUP PO SCH ×4 (08:19→21:32)
[2019-06-22] MEDS: FENOFIBRATE 160 MG TAB PO SCH (08:19)
[2019-06-22] MEDS: METOPROLOL TARTRATE 25 MG TAB PO SCH ×2 (08:19→21:32)
[2019-06-22] MEDS: SENNOSIDES-DOCUSATE SODIUM 1 EACH TAB PO SCH (08:20)
--- NOTE | 2019-06-22 08:40 | P.PN ---
Progress Note - Text Progress Note Date: 06/22/19 Orthopedic Spine: Patient is a pleasant 59-year-old male who is seen and examined at the bedside following posterior lateral decompression and fusion performed last Saturday. Patient states they are doing ok postsurgically. He continues to have pain in the surgical sites which has had some improvement over the weekend. His lower extremity radiculopathy symptoms have improved postoperatively. He does continue to have some pain radiating towards the right hip. He continues to have difficulty with urination postoperatively. His Olivera catheter was removed yesterday and he has been able to void on his own continues to have some retention. He continues be seen and examined by medicine. He is currently on Flomax in the morning. He is also being seen and examined by general surgery for treatment in regards to colonic ileus. He continues to have abdominal pain and distention. He was able to have a small bowel movement and is passing some gas. He is currently on a liquid diet. Gen. surgery is planning to continue with clear liquids as well as Dulcolax suppositories twice a day. He has been able to get out of bed a couple times per day. He has been able to shower. Currently does not complain of nausea, vomiting, fever, or chills. Patient stat es pain is being controlled with Flexeril, Ultram, and Dilaudid. He has a medical history which includes hypertension, hyperlipidemia and daily tobacco use. Physical Exam Lumbar Fusion: Status post surgical day number 5 Patient is awake, alert, and oriented 3 Vital signs stable Good chest excursion with deep inspiration and expiration Abdomen somewhat firm with distention and some pain of the right side of the abdomen with palpation; no left sided abdominal pain with palpation Dorsiflexion, plantarflexion, and extensor hallucis longus positive sustained bilaterally No signs or symptoms of DVT; no calf pain; pneumatic cuffs not currently intact bilateral lower extremities Dressing is clean, dry, and intact; no erythema, purulence, or signs of infection No significant pain with palpation around the surgical sites Neurovascularly intact bilaterally lower extremities Assessment: L3-4 and L4-5 minimally invasive posterior lateral decompression and fusion with transforaminal lumbar interbody fusion Urinary retention Colonic ileus postoperatively History of hypertension, hyperlipidemia and daily tobacco use. Plan: 1. Ambulate as tolerated; work with Physical Therapy to increase mobilization 2. Continue pain control with IV and oral medications MAPS has been reviewed today, 06/19/2019, with an Overall Overdose Risk Score of 240 with a narcotic score of 320. An "Opiod Start Talking" Forn has been signed by the patient and myself in place in the patient's chart. A prescription has been written for Ultram 50 mg take 1-2 tabs every 6 hours as needed for pain, dispensed #56. Patient should avoid anti-inflammatories over the next 6 weeks postoperatively. Patient is also given a prescription for Flexeril 10 mg take 1 tab every 8 hours as needed for muscle spasms, dispensed #90. 3. Dressing to remain intact with Telfa and Tegaderm; patient may shower with dressing intact 4. Medical management can continue to manage patient for patient's other medical issues including urinary retention 5. Patient will continue to be seen and examined by general surgery for treatment regards to colonic ileus postoperatively 6. We will continue to follow the patient closely; patient will continue to remain in hospital until his other symptoms improve. We discussed he would be cleared for discharge from an orthopedic spine standpoint and continues to have difficulty with urinary retention and colonic ileus. He will continue to remain in the hospital until the symptoms improved. 7. Patient can follow-up with Faheem Palomo PA-C or Dr. Noe Monson at [facility] in 2-3 weeks following discharge
--- NOTE | 2019-06-22 11:32 | CDI ---
Documentation Clarification Form Date: 06/22/2019 11:22:05 AM From: Laura Vaughn CCS, CCDS Admit Date: 06/17/2019 6:27:00 AM Patient Name: Reece Rodriguez Visit Number: [id number] Discharge Date: ATTENTION: The Clinical Documentation Specialists (CDI) and [facility] Coding Staff appreciate your assistance in clarifying documentation. Please respond to the clarification below the line at the bottom and electronically sign. The CDI & [facility] Coding staff will review the response and follow-up if needed. Please note: Queries are made part of the Legal Health Record. If you have any questions, please contact the author of this message via ITS. Dr. Nikita Mercado: 06/19 Surgery consulted regarding patient's increased bloating & abdominal cramping status post lumbar fusion, POD #2. Per the Surgical consult: Postoperative colonic ileus. Patients Admitting Diagnosis: Recurrent disc herniation L4-5 with spinal stenosis L3-4 L4-5 & right lower extremity radiculopathy & weakness. Post-Operative Diagnosis: Same Procedure performed: Revision Laminectomy & decompression L4-5 w/discectomy & fusion L3-4 L4-5. History/Risk Factors: BPH, Hypertension, Hyperlipidemia, Obesity, Smoker. Clinical Indicators: Presented for elective lumbar fusion, diagnosed with urinary retention possibly due to BPH & colonic ileus on POD #2. Treatment: Olivera catheter continued, Dulcolax suppositories, rectal tube, repeat XRays, ambulation, IV Reglan added. IV Kefzol, IV Kcl, In order to accurately reflect this patients severity of illness, please clarify if the post-operative diagnosis is: Postoperative ileus related to surgery, please specify cause & significance. Postoperative ileus is not related to surgery, please specify cause & significance. Other, please specify ____ Unable to determine (Last Revision: February 2019) MTDD
[2019-06-22 12:01] LABS: Basophils # (A) 0.1 k/uL (0-0.2); Basophils % (A) 1 %; Eosinophils # (A) 0.2 k/uL (0-0.7); Eosinophils % (A) 2 %; HCT 34.2 % (39.0-53.0); HGB 11.5 gm/dL (13.0-17.5); Lymphocytes # (A) 1.3 k/uL (1.0-4.8); Lymphocytes % (A) 16 %; MCH 29.5 pg (25.0-35.0); MCHC 33.5 g/dL (31.0-37.0); MCV 88.2 fL (80.0-100.0); Mean Platelet Volume 6.9; Monocytes # (A) 0.7 k/uL (0-1.0); Monocytes % (A) 8 %; Neutrophils # (A) 5.6 k/uL (1.3-7.7); Neutrophils % (A) 71 %; Platelet Count 381 k/uL (150-450); RBC 3.88 m/uL (4.30-5.90); RDW 14.2 % (11.5-15.5)
[2019-06-22 12:11] LABS: African American GFR (CKD) >90 (>60 ml/min/1.73 sqM); Anion Gap 6 mmol/L; Blood Urea Nitrogen 15 mg/dL (9-20); Calcium 8.2 mg/dL (8.4-10.2); Carbon Dioxide 28 mmol/L (22-30); Chloride 102 mmol/L (98-107); Glucose 91 mg/dL (74-99); Phosphorus 2.8 mg/dL (2.5-4.5); Potassium 3.5 mmol/L (3.5-5.1); Sodium 136 mmol/L (137-145)
--- NOTE | 2019-06-22 12:35 | P.PN ---
Subjective Progress Note Date: 06/22/19 CHIEF COMPLAINT: Colonic ileus HISTORY OF PRESENT ILLNESS: Patient seen and examined this morning at the bedside. Patient reports belching and abdominal bloating this morning. He states his abdominal bloating has improved from yesterday. He states his abdomen is "a little larger than normal". He denies abdominal pain. He reports 3-4 loose bowel movements overnight. He is tolerating clear liquid diet. Denies nausea or vomiting. PHYSICAL EXAM: VITAL SIGNS: Currently stable. GENERAL: Well-developed in no acute distress. HEENT: No sclera icterus. Extraocular movements grossly intact. Moist buccal mucosa. Head is atraumatic, normocephalic. Hears conversational speech. No nasal drainage. NECK: Supple without lymphadenopathy. CHEST: Non-labored respirations and equal bilateral excursions. CARDIOVASCULAR: Regular rate with regular rhythm. Palpable 2+ radial pulses. ABDOMEN: Soft. Distended. Nontender. Positive bowel sounds. MUSCULOSKELETAL: No clubbing, cyanosis or edema. NEUROLOGIC: No focal or lateralizing signs. Cranial nerves II through XII grossly intact. PSYCH: Appropriate affect. Alert and oriented to person, place and time. SKIN: Well perfused. Good skin turgor. ASSESSMENT: 1. Status post revision of decompression laminectomy of L4-L5 and laminectomy with discectomy of L3L4 with bone graft 2. Postoperative colonic ileus, an unexpected but potential outcome of surgery PLAN: 1. Continue clear liquid diet 2. Continue dulcolax suppositories BID 3. Increase activity as tolerated 4. If patients abdominal distention continues to improve tomorrow, will advance diet to full liquid. If no improvement, will likely require barium enema to rule out distal obstruction, however thought to be less likely Nurse practitioner note has been reviewed by physician. Signing provider agrees with the documented findings, assessment, and plan of care. Objective - Vital Signs Vital signs: Vital Signs Temp 98.0 F 06/22/19 07:00 Pulse 91 06/22/19 07:00 Resp 16 06/22/19 07:00 BP 159/83 06/22/19 07:00 Pulse Ox 96 06/22/19 07:00 Intake & Output 06/21/19 06/22/19 06/22/19 18:59 06:59 18:59 Intake Total 540 Output Total 900 0215 400 Balance -360 -4376 -400 Intake: Oral 540 Output: Urine 900 2350 400 Uretheral (Olivera) 500 800 Post Void Residual 525 Other: Voiding Method Indwelling Catheter Urinal Urinal # Bowel Movements 1 - Labs CBC & Chem 7: 06/22/19 10:58 06/22/19 10:58 Labs: Abnormal Lab Results - Last 24 Hours (Table) 06/22/19 06/22/19 Range/Units 10:58 10:58 RBC 3.88 L (4.30-5.90) m/uL Hgb 11.5 L (13.0-17.5) gm/dL Hct 34.2 L (39.0-53.0) % Sodium 136 L (137-145) mmol/L Creatinine 0.64 L (0.66-1.25) mg/dL Calcium 8.2 L (8.4-10.2) mg/dL Assessment and Plan (1) Ileus Current Visit: Yes Status: Acute Code(s): K56.7 - ILEUS, UNSPECIFIED SNOMED Code(s): 907341202
--- NOTE | 2019-06-22 13:01 | XR ---
2 view abdomen HISTORY: Obstruction 2 views of the abdomen on 3 images correlated to prior abdomen 06/20/2019 Gas-filled loops of large bowel are present. No significant persistent air-fluid levels. Splenic calc ifications are noted. Lung bases are clear. No pneumoperitoneum. Suspect there is a distended loop of small bowel in the right upper quadrant. IMPRESSION: Findings may represent ileus rather than obstruction, correlate.
[2019-06-22] MEDS: CYCLOBENZAPRINE 10 MG TAB PO PRN (13:29)
--- NOTE | 2019-06-22 15:10 | P.PN ---
Subjective Progress Note Date: 06/22/19 This is a 59-year-old male one of Dr. Tabor with a previous medical history significant for hypertension and hypertensive cardiovascular disease, hyperlipidemia, history of GERD, history of chronic tobacco use and dependence, patient had a chronic history of low back pain post laminectomy of L4-L5 underwent revision of decompression laminectomy of L4-L5 and laminectomy with decompression and discectomy of L3-L4 that was done by Dr. Garcia along with bone graft and we were asked to the patient for medical management. 06/18: Patient has been afebrile, heart rate 103, blood pressure 137/72, pulse ox 96% on room air. Lab work reveals white count of 17.9, hemoglobin 12.3, sodium 134, creatinine 0.86, blood sugar 98. Patient has had frequent small urinations through the night. He does complain of suprapubic pressure. The patient has required straight cath 3 and the last one was for residual 790 ML's. Flomax will be started. Patient is complaining of back pain and neck pain. He denies any headache. He denies any nausea. 06/19: Patient has been afebrile, heart rate 75, blood pressure 133/70, pulse ox 94% on room air. Olivera catheter has been placed for urinary retention and dra roing adequately. Patient complains of abdominal distention and constipation. His past very little gas this morning. Abdominal x-rays have been ordered by orthopedics. Keep Olivera in place. Abdominal x-rays shows gaseous dilatation of the entirety of the large bowel, represents severe colonic ileus or distal colonic obstruction. No pneumoperitoneum. We have added in a consult for Dr. Mercado. 06/20, patient complains off still abdominal distention, small bowel movement, large flat this today, patient still has an indwelling Olivera catheter, for urinary retention, abdominal discomfort is diminished today, diminished appetite, no vomiting, no nausea, patient feels full, clear liquid diet started, folic acid will be expected to be discontinued in the next 1-2 days after resolution off ileus, patient is on tamsulosin patient denies any fever no chills, no cough no chest pain WBC count decreased to 14.8, creatinine 0.76 no urinalysis sent, will obtained for one 06/21, abdominal distention seems to somehow improved, however he still is tympanitic on exam, patient takes is able to move minimal amount of bowel movement, and some flat this today. Patient denies any nausea, still with no a ppetite, urine is still draining through a Olivera catheter, were planning on adding Maalox plus today and discontinued the following catheter at 10 PM tonight patient's ambulating without difficulties, no neuropathy, we'll going to check for postvoid residuals after the Olivera cath removal tonight 06/22: The patient is complaining of hip pain today. He has passed gas. He is having continued difficulty with urinary retention and Flomax will be increased to twice daily. He is feeling hungry and would like his diet advanced. He is currently on clear liquids which will need to be advanced by general surgery. Repeat abdominal x-ray ordered for today. Patient has been afebrile, heart rate 94, blood pressure 144/80, pulse ox 96% on room air. WBC is 8, hemoglobin 11.5. Creatinine 0.64. TSH 2.330. Abdominal x-ray reveals ileus rather than obstruction. Objective - Vital Signs Vital signs: Vital Signs Temp 98.0 F 06/22/19 07:00 Pulse 91 06/22/19 07:00 Resp 16 06/22/19 07:00 BP 159/83 06/22/19 07:00 Pulse Ox 96 06/22/19 07:00 Intake & Output 06/21/19 06/22/19 06/22/19 18:59 06:59 18:59 Intake Total 540 Output Total 900 2875 Balance -360 -2875 Intake: Oral 540 Output: Urine 900 2350 Uretheral (Olivera) 500 800 Post Void Residual 525 Other: Voiding Method Indwelling Catheter Urinal # Bowel Movements 1 - Exam Review of Systems Constitutional: Denies anorexia, Denies chronic headaches, Denies fatigue, Denies fever, Denies lethargy, Denies weakness, Denies weight gain, Denies weight loss Eyes: denies blurred vision, denies bulging eye, denies decreased vision Ears, nose, mouth and throat: Denies dysphagia, Denies neck lump, Denies swelling in throat, Denies sore throat Cardiovascular: Denies chest pain, Denies decreased exercise tolerance, Denies dyspnea on exertion, Denies leg edema, Denies lightheadedness, Denies rapid heart beat, Denies shortness of breath, Denies syncope Respiratory: Denies congestion, Denies cough, Denies cough with sputum, Denies home oxygen, Denies respiratory infections, Denies sleep apnea, Denies snoring, Denies wheezing Gastrointestinal: Reports abdominal pain improved, Denies belching, Denies BRBPR, Denies heartburn, Denies melena, Denies nausea, Denies vomiting Genitourinary: Denies dysuria, reports nocturia, reports frequent urination, reports suprapubic pressure, reports incomplete bladder emptying Musculoskeletal: Reports low back pain, Denies myalgias Musculoskeletal: absent: ankle pain, ankle stiffness, ankle swelling, elbow pain, elbow stiffness, elbow swelling, foot pain, foot stiffness, foot swelling, hand pain, hand stiffness, hand swelling, reports hip pain, hip stiffness, hip swelling, knee pain, knee stiffness, knee swelling, shoulder pain, shoulder stiffness, shoulder swelling, wrist pain, wrist stiffness, wrist swelling Integumentary: Denies pruritus, Denies rash Neurological: Denies numbness, Denies weakness Psychiatric: Denies anxiety, Denies depression Endocrine: Denies fatigue, Denies weight change - Constitutional General appearance: average body habitus, no acute distress - EENT Eyes: anicteric sclerae, EOMI, PERRLA, no ptosis, no scleral icterus, normal appearance ENT: hearing grossly normal, NA/AT, normal oropharynx, no thrush Ears: bilateral: normal - Neck Neck: no lymphadenopathy, normal ROM, no rigidity, no stridor, no thyromegaly Carotids: bilateral: upstroke normal Thyroid: bilateral: normal size - Respiratory Respiratory: bilateral: diminished, negative: dullness, rales, rhonchi, wheezing, prolonged expiration, prolonged inspiration - Cardiovascular Rhythm: regular Heart sounds: normal: S1, S2 Abnormal Heart Sounds: no systolic murmur, no S3 Gallop, no S4 Gallop - Gastrointestinal General gastrointestinal: Abdominal distention decreased, mild generalized tenderness, normal bowel sounds, soft, no splenomegaly, no umbilical hernia, no ventral hernia - Integumentary Integumentary: normal, normal turgor - Neurologic Neurologic: CNII-XII intact - Musculoskeletal Musculoskeletal: strength equal bilaterally - Psychiatric Psychiatric: A&O x's 3, appropriate affect, intact judgment & insight - Labs CBC & Chem 7: 06/22/19 10:58 06/22/19 10:58 Assessment and Plan Plan: 1. Status post a revision of decompression laminectomy of L4-L5 and laminectomy with discectomy of L3-L4 with bone graft. Continue patient on current pain management as outlined by spine surgery, continue with incentive spirometer to reduce the incidence of atelectasis and healthcare associated pneumonia, physical therapy evaluation tomorrow morning, monitor the patient very closely. 2. Hypertension and hypertensive cardiovascular disease. We will continue patient on lisinopril 40 mg orally once every day as well as metoprolol 25 mg orally twice every day and amlodipine 5 mg orally once every day. 3. Hyperlipidemia. Continue patient on Lipitor 10 mg orally once every day, and fenofibrate 145 mg orally once every day. 4. GERD with esophagitis. Continue patient on omeprazole 20 mg orally once every day. 5. Chronic tobacco use and dependence. Smoking cessation and counseling an increased risk of CAD, CVA, and malignancy, plus pseudoarthrosis post- laminectomy . 6. Acute urinary retention most likely secondary to benign prostatic hypertrophy. Patient will be started on Flomax 0.4 mg increased frequency to twice daily. Patient required Olivera catheter placement. 7. DVT prophylaxis. Bilateral knee-high TRACEY hose and SCDs. 8. GI prophylaxis. Continue patient on PPI 9. Ileus. Consult with Dr. Mercado. Clear liquid diet. Discharge plan: Return home Impression and plan of care have been directed as dictated by the signing physician. Kierra Tiwari nurse practitioner acting as scribe for signing physician.
[2019-06-23] MEDS: METOCLOPRAMIDE 5 MG/ML 2 ML VIAL IVP SCH ×3 (00:58→12:23)
[2019-06-23] MEDS: HYDROmorphone 1 MG/ML 1 ML SYRINGE IVP PRN (02:11)
[2019-06-23] MEDS: SODIUM CHLORIDE 0.9% 1,000 ML IV SCH (03:58)
[2019-06-23] MEDS: PANTOPRAZOLE 40 MG TABLET PO SCH (07:54)
[2019-06-23] MEDS: CYCLOBENZAPRINE 10 MG TAB PO PRN (08:29)
[2019-06-23] MEDS: traMADol 50 MG TAB PO PRN (08:29)
--- NOTE | 2019-06-23 08:40 | P.PN ---
Progress Note - Text Progress Note Date: 06/23/19 Orthopedic Spine: Patient is a pleasant 59-year-old male who is seen and examined at the bedside following posterior lateral decompression and fusion performed last Saturday. Patient states they are doing ok postsurgically. Overall he has had some improvement since yesterday. He continues to have pain in the surgical sites which has had some improvement over the weekend. His lower extremity radiculopathy symptoms have improved postoperatively. He does continue to have some pain radiating towards the right hip. He continues to have difficulty with urination postoperatively but this has improved since yesterday. He states he is now voiding between 500 mL and 600 mL without significant retention. He continues be seen and examined by medicine. He is also being seen and examined by general surgery for treatment in regards to colonic ileus. He continues to have abdominal pain and distention. He has been passing more gas since yesterday and feels his abdominal pain has had some improvement. He has not had another bowel movement. He states he is able to start some solid food yesterday but has not had much of an appetite. General surgery is continuing with Dulcolax suppositories twice a day and may plan for barium enema if he fails to continue to improve. He has been able to get out of bed a couple times per day. He has been able to shower. Currently does not complain of nausea, vomiting, fever, or chills. Patient states pain is being controlled with Flexeril, Ultram, and Dilaudid. He has a medical history which includes hypertension, hyperlipidemia and daily tobacco use. Physical Exam Lumbar Fusion: Status post surgical day number 6 Patient is awake, alert, and oriented 3 Vital signs stable Good chest excursion with deep inspiration and expiration Abdomen somewhat firm with distention and some pain of the right side of the abdomen with palpation; no left sided abdominal pain with palpation Dorsiflexion, plantarflexion, and extensor hallucis longus positive sustained bilaterally No signs or symptoms of DVT; no calf pain; pneumatic cuffs not currently intact bilateral lower extremities Dressing is clean, dry, and intact; no erythema, purulence, or signs of infection No significant pain with palpation around the surgical sites Neurovascularly intact bilaterally lower extremities Assessment: L3-4 and L4-5 minimally invasive posterior lateral decompression and fusion with transforaminal lumbar interbody fusion Urinary retention; improving Colonic ileus postoperatively History of hypertension, hyperlipidemia and daily tobacco use. Plan: 1. Ambulate as tolerated; work with Physical Therapy to increase mobilization 2. Continue pain control with IV and oral medications MAPS has been reviewed today, 06/19/2019, with an Overall Overdose Risk Score of 240 with a narcotic score of 320. An "Opiod Start Talking" Forn has been signed by the patient and myself in place in the patient's chart. A prescription has been written for Ultram 50 mg take 1-2 tabs every 6 hours as needed for pain, dispensed #56. Patient should avoid anti-inflammatories over the next 6 weeks postoperatively. Patient is also given a prescription for Flexeril 10 mg take 1 tab every 8 hours as needed for muscle spasms, dispensed #90. 3. Dressing to remain intact with Telfa and Tegaderm; patient may shower with dressing intact 4. Medical management can continue to manage patient for patient's other medical issues including urinary retention 5. Patient will continue to be seen and examined by general surgery for treatment regards to colonic ileus postoperatively; If the patient does not continue to improve they may plan for a barium enema today 6. We will continue to follow the patient closely; patient will continue to remain in hospital until his other symptoms improve. We discussed he would be cleared for discharge from an orthopedic spine standpoint and continues to have difficulty with colonic ileus. He has had improvement in regards to his urinary retention. He will continue to remain in the hospital until the symptoms improved. 7. Patient can follow-up with Faheem Palomo PA-C or Dr. Noe Monson at [facility] in 2-3 weeks following discharge
[2019-06-23] MEDS: LISINOPRIL 20 MG TAB PO SCH (08:48)
[2019-06-23] MEDS: ASPIRIN 81 MG PO SCH (08:48)
[2019-06-23] MEDS: SENNOSIDES-DOCUSATE SODIUM 1 EACH TAB PO SCH (08:48)
[2019-06-23] MEDS: TAMSULOSIN 0.4 MG CAP.ER.24H PO SCH (08:48)
[2019-06-23] MEDS: MAG HYDROX/AL HYDROX/SIMETH 30 ML CUP PO SCH ×2 (08:48→12:23)
[2019-06-23] MEDS: amLODIPine 5 MG TAB PO SCH (08:48)
[2019-06-23] MEDS: METOPROLOL TARTRATE 25 MG TAB PO SCH (08:48)
[2019-06-23 08:49] LABS: Basophils # (A) 0.1 k/uL (0-0.2); Basophils % (A) 1 %; Eosinophils # (A) 0.2 k/uL (0-0.7); Eosinophils % (A) 2 %; HCT 38.7 % (39.0-53.0); HGB 12.6 gm/dL (13.0-17.5); Lymphocytes # (A) 2.1 k/uL (1.0-4.8); Lymphocytes % (A) 19 %; MCH 28.8 pg (25.0-35.0); MCHC 32.7 g/dL (31.0-37.0); MCV 88.1 fL (80.0-100.0); Mean Platelet Volume 6.4; Monocytes # (A) 0.8 k/uL (0-1.0); Monocytes % (A) 8 %; Neutrophils # (A) 7.3 k/uL (1.3-7.7); Neutrophils % (A) 68 %; Platelet Count 448 k/uL (150-450); RBC 4.39 m/uL (4.30-5.90); WBC 10.7 k/uL (3.8-10.6)
[2019-06-23] MEDS: FENOFIBRATE 160 MG TAB PO SCH (08:49)
[2019-06-23] MEDS: ATORVASTATIN 10 MG TAB PO SCH (08:49)
[2019-06-23] MEDS: BISACODYL 10 MG SUPP RECTAL SCH (08:49)
[2019-06-23 08:57] LABS: African American GFR (CKD) >90 (>60 ml/min/1.73 sqM); Anion Gap 10 mmol/L; Blood Urea Nitrogen 13 mg/dL (9-20); Calcium 8.9 mg/dL (8.4-10.2); Carbon Dioxide 30 mmol/L (22-30); Chloride 99 mmol/L (98-107); Glucose 98 mg/dL (74-99); Potassium 3.7 mmol/L (3.5-5.1); Sodium 139 mmol/L (137-145)
[2019-06-23 09:10] VITALS: BP 166/82; PULSE 92; RESP 16; TEMP 98.1
--- NOTE | 2019-06-23 11:17 | P.PN ---
Subjective Progress Note Date: 06/23/19 CHIEF COMPLAINT: Colonic ileus HISTORY OF PRESENT ILLNESS: Patient seen and examined this morning at the bedside. patient denies abdominal pain. Tolerating regular diet. Patient reports passing flatus and having bowel movements. He is hoping to be discharged home today. PHYSICAL EXAM: VITAL SIGNS: Currently stable. GENERAL: Well-developed in no acute distress. HEENT: No sclera icterus. Extraocular movements grossly intact. Moist buccal mucosa. Head is atraumatic, normocephalic. Hears conversational speech. No nasal drainage. NECK: Supple without lymphadenopathy. CHEST: Non-labored respirations and equal bilateral excursions. CARDIOVASCULAR: Regular rate with regular rhythm. Palpable 2+ radial pulses. ABDOMEN: Soft. Mild distended. Nontender. Positive bowel sounds. MUSCULOSKELETAL: No clubbing, cyanosis or edema. NEUROLOGIC: No focal or lateralizing signs. Cranial nerves II through XII grossly intact. PSYCH: Appropriate affect. Alert and oriented to person, place and time. SKIN: Well perfused. Good skin turgor. ASSESSMENT: 1. Status post revision of decompression laminectomy of L4-L5 and laminectomy with discectomy of L3L4 with bone graft 2. Postoperative colonic ileus, an unexpected but potential outcome of surgery PLAN: 1. Continue current diet 2. Stable for discharge from a surgical standpoint. We'll sign off. Please reconsult if needed. Nurse practitioner note has been reviewed by physician. Signing provider agrees with the documented findings, assessment, and plan of care. Objective - Vital Signs Vital signs: Vital Signs Temp 98.1 F 06/23/19 07:00 Pulse 92 06/23/19 07:00 Resp 16 06/23/19 07:00 BP 166/82 06/23/19 07:00 Pulse Ox 97 06/23/19 07:00 Intake & Output 06/22/19 06/23/19 06/23/19 18:59 06:59 18:59 Output Total 900 1900 Balance -900 -1900 Output: Urine 900 1900 Other: Voiding Method Urinal Toilet Urinal # Voids 3 2 - Labs CBC & Chem 7: 06/23/19 07:35 06/23/19 07:35 Labs: Abnormal Lab Results - Last 24 Hours (Table) 06/22/19 06/22/19 06/23/19 Range/Units 10:58 10:58 07:35 WBC 10.7 H (3.8-10.6) k/uL RBC 3.88 L (4.30-5.90) m/uL Hgb 11.5 L 12.6 L (13.0-17.5) gm/dL Hct 34.2 L 38.7 L (39.0-53.0) % Sodium 136 L (137-145) mmol/L Creatinine 0.64 L (0.66-1.25) mg/dL Calcium 8.2 L (8.4-10.2) mg/dL Assessment and Plan (1) Ileus Current Visit: Yes Status: Acute Code(s): K56.7 - ILEUS, UNSPECIFIED SNOMED Code(s): 121579124
--- NOTE | 2019-06-23 11:34 | P.PN ---
Subjective Progress Note Date: 06/23/19 This is a 59-year-old male one of Dr. Tabor with a previous medical history significant for hypertension and hypertensive cardiovascular disease, hyperlipidemia, history of GERD, history of chronic tobacco use and dependence, patient had a chronic history of low back pain post laminectomy of L4-L5 underwent revision of decompression laminectomy of L4-L5 and laminectomy with decompression and discectomy of L3-L4 that was done by Dr. Garcia along with bone graft and we were asked to the patient for medical management. 06/18: Patient has been afebrile, heart rate 103, blood pressure 137/72, pulse ox 96% on room air. Lab work reveals white count of 17.9, hemoglobin 12.3, sodium 134, creatinine 0.86, blood sugar 98. Patient has had frequent small urinations through the night. He does complain of suprapubic pressure. The patient has required straight cath 3 and the last one was for residual 790 ML's. Flomax will be started. Patient is complaining of back pain and neck pain. He denies any headache. He denies any nausea. 06/19: Patient has been afebrile, heart rate 75, blood pressure 133/70, pulse ox 94% on room air. Olivera catheter has been placed for urinary retention and dra roing adequately. Patient complains of abdominal distention and constipation. His past very little gas this morning. Abdominal x-rays have been ordered by orthopedics. Keep Olivera in place. Abdominal x-rays shows gaseous dilatation of the entirety of the large bowel, represents severe colonic ileus or distal colonic obstruction. No pneumoperitoneum. We have added in a consult for Dr. Mercado. 06/20, patient complains off still abdominal distention, small bowel movement, large flat this today, patient still has an indwelling Olivera catheter, for urinary retention, abdominal discomfort is diminished today, diminished appetite, no vomiting, no nausea, patient feels full, clear liquid diet started, folic acid will be expected to be discontinued in the next 1-2 days after resolution off ileus, patient is on tamsulosin patient denies any fever no chills, no cough no chest pain WBC count decreased to 14.8, creatinine 0.76 no urinalysis sent, will obtained for one 06/21, abdominal distention seems to somehow improved, however he still is tympanitic on exam, patient takes is able to move minimal amount of bowel movement, and some flat this today. Patient denies any nausea, still with no a ppetite, urine is still draining through a Olivera catheter, were planning on adding Maalox plus today and discontinued the following catheter at 10 PM tonight patient's ambulating without difficulties, no neuropathy, we'll going to check for postvoid residuals after the Olivera cath removal tonight 06/22: The patient is complaining of hip pain today. He has passed gas. He is having continued difficulty with urinary retention and Flomax will be increased to twice daily. He is feeling hungry and would like his diet advanced. He is currently on clear liquids which will need to be advanced by general surgery. Repeat abdominal x-ray ordered for today. Patient has been afebrile, heart rate 94, blood pressure 144/80, pulse ox 96% on room air. WBC is 8, hemoglobin 11.5. Creatinine 0.64. TSH 2.330. Abdominal x-ray reveals ileus rather than obstruction. 06/23: Repeat lab work reveals a basic panel within normal limits, white count is 7.7 hemoglobin 12.6. Patient is currently on IV Kefzol. He has been afebrile, heart rate 92, blood pressure 166/82, pulse ox 97% on room air. General surgery has advanced his diet to regular as of last evening and ate 75% of his dinner. Patient has been cleared by general surgery for discharge. Patient states he has been able to void. We will plan to send a prescription for Flomax twice daily to his pharmacy. Patient is cleared from medicine for discharge. Anticipate discharge home today in stable condition. Objective - Vital Signs Vital signs: Vital Signs Temp 98.4 F 06/23/19 03:25 Pulse 90 06/23/19 03:25 Resp 17 06/23/19 03:25 BP 163/85 06/23/19 03:25 Pulse Ox 98 06/23/19 03:25 Intake & Output 06/22/19 06/23/19 06/23/19 18:59 06:59 18:59 Output Total 900 1900 Balance -900 -1900 Output: Urine 900 1900 Other: Voiding Method Urinal Toilet Urinal # Voids 3 2 - Exam Review of Systems Constitutional: Denies anorexia, Denies chronic headaches, Denies fatigue, Denies fever, Denies lethargy, Denies weakness, Denies weight gain, Denies weight loss Eyes: denies blurred vision, denies bulging eye, denies decreased vision Ears, nose, mouth and throat: Denies dysphagia, Denies neck lump, Denies swelling in throat, Denies sore throat Cardiovascular: Denies chest pain, Denies decreased exercise tolerance, Denies dyspnea on exertion, Denies leg edema, Denies lightheadedness, Denies rapid heart beat, Denies shortness of breath, Denies syncope Respiratory: Denies congestion, Denies cough, Denies cough with sputum, Denies home oxygen, Denies respiratory infections, Denies sleep apnea, Denies snoring, Denies wheezing Gastrointestinal: Denies abdominal pain improved, Denies belching, Denies BRBPR, Denies heartburn, Denies melena, Denies nausea, Denies vomiting Genitourinary: Denies dysuria, reports nocturia, reports frequent urination, denies suprapubic pressure, denies incomplete bladder emptying Musculoskeletal: Reports low back pain, Denies myalgias Musculoskeletal: absent: ankle pain, ankle stiffness, ankle swelling, elbow pain, elbow stiffness, elbow swelling, foot pain, foot stiffness, foot swelling, hand pain, hand stiffness, hand swelling, reports hip pain, hip stiffness, hip swelling, knee pain, knee stiffness, knee swelling, shoulder pain, shoulder stiffness, shoulder swelling, wrist pain, wrist stiffness, wrist swelling Integumentary: Denies pruritus, Denies rash Neurological: Denies numbness, Denies weakness Psychiatric: Denies anxiety, Denies depression Endocrine: Denies fatigue, Denies weight change - Constitutional General appearance: average body habitus, no acute distress - EENT Eyes: anicteric sclerae, EOMI, PERRLA, no ptosis, no scleral icterus, normal appearance ENT: hearing grossly normal, NA/AT, normal oropharynx, no thrush Ears: bilateral: normal - Neck Neck: no lymphadenopathy, normal ROM, no rigidity, no stridor, no thyromegaly Carotids: bilateral: upstroke normal Thyroid: bilateral: normal size - Respiratory Respiratory: bilateral: diminished, negative: dullness, rales, rhonchi, wheezing, prolonged expiration, prolonged inspiration - Cardiovascular Rhythm: regular Heart sounds: normal: S1, S2 Abnormal Heart Sounds: no systolic murmur, no S3 Gallop, no S4 Gallop - Gastrointestinal General gastrointestinal: Abdominal soft, no tenderness, normal bowel sounds, soft, no splenomegaly, no umbilical hernia, no ventral hernia - Integumentary Integumentary: normal, normal turgor - Neurologic Neurologic: CNII-XII intact - Musculoskeletal Musculoskeletal: strength equal bilaterally - Psychiatric Psychiatric: A&O x's 3, appropriate affect, intact judgment & insight - Labs CBC & Chem 7: 06/23/19 07:35 06/23/19 07:35 Labs: Abnormal Lab Results - Last 24 Hours (Table) 06/22/19 06/22/19 06/23/19 Range/Units 10:58 10:58 07:35 WBC 10.7 H (3.8-10.6) k/uL RBC 3.88 L (4.30-5.90) m/uL Hgb 11.5 L 12.6 L (13.0-17.5) gm/dL Hct 34.2 L 38.7 L (39.0-53.0) % Sodium 136 L (137-145) mmol/L Creatinine 0.64 L (0.66-1.25) mg/dL Calcium 8.2 L (8.4-10.2) mg/dL Assessment and Plan Plan: 1. Status post a revision of decompression laminectomy of L4-L5 and laminectomy with discectomy of L3-L4 with bone graft. Continue patient on current pain management as outlined by spine surgery, continue with incentive spirometer to reduce the incidence of atelectasis and healthcare associated pneumonia, physical therapy evaluation. 2. Hypertension and hypertensive cardiovascular disease. We will continue patient on lisinopril 40 mg orally once every day as well as metoprolol 25 mg orally twice every day and amlodipine 5 mg orally once every day. 3. Hyperlipidemia. Continue patient on Lipitor 10 mg orally once every day, and fenofibrate 145 mg orally once every day. 4. GERD with esophagitis. Continue patient on omeprazole 20 mg orally once every day. 5. Chronic tobacco use and dependence. Smoking cessation and counseling an increased risk of CAD, CVA, and malignancy, plus pseudoarthrosis post- laminectomy . 6. Acute urinary retention most likely secondary to benign prostatic hypertrophy. Discharge patient with Flomax 0.4 mg twice daily. 7. DVT prophylaxis. Bilateral knee-high TRACEY hose and SCDs. 8. GI prophylaxis. Continue patient on PPI 9. Ileus. Consult with Dr. Mercado. Regular diet. Discharge plan: Return home Impression and plan of care have been directed as dictated by the signing physician. Kierra Tiwari nurse practitioner acting as scribe for signing physician.
--- NOTE | 2019-06-24 09:15 | P.DS ---
Providers Date of admission: 06/17/19 06:27 Expected date of discharge: 06/23/19 Attending physician: Alfonzo Monson Consults: 06/17/19 11:36 Consult Physician Routine Consulting Provider: Shankar Tabor Consult Reason/Comments: Medical management Do you want consulting provider notified?: Yes 06/19/19 12:14 Consult Physician Routine Consulting Provider: Nikita Mercado Consult Reason/Comments: colonic distention, obstruction Do you want consulting provider notified?: Yes Primary care physician: Shankar Tabor - Discharge Diagnosis(es) (1) Status post lumbar spinal fusion Status: Acute (2) Urinary retention Status: Acute (3) Lumbar disc herniation with radiculopathy Status: Acute (4) Lumbar spinal stenosis Status: Acute (5) Lumbar degenerative disc disease Status: Acute (6) Hypertension Status: Acute (7) Hyperlipidemia Status: Acute (8) Tobacco use Status: Acute (9) Ileus Status: Acute Hospital Course: This is a pleasant 59-year-old male who presented with L4-5 recurrent disc herniation, L3-4 disc herniation, spinal stenosis and degenerative disc disease at L3-4 and L4-5 with right lower extremity radiculopathy and weakness with history of previous laminectomy and decompression at L4-5 who failed outpatient conservative therapy. He was admitted for L3-4 and L4-5 minimally invasive posterior lateral decompression and fusion with transforaminal lumbar interbody fusion. Postoperatively he had significant difficulty with urinary retention and a postoperative colonic ileus. His Olivera catheter had been discontinued and had to be reinserted. Since the last discontinuation of the Olivera catheter he has been able to increase urination and has been urinating without difficulty. He has not been having any significant residual urine. He had been started on Flomax by medicine. He was also experiencing significant colonic ileus and was seen and treated by general surgery. His symptoms have continued to improve over the past several days. He is passing significant gas and has been able to eat. He has not had a full bowel movement. General surgery has increased his diet. Patient has been seen and examined by both medicine and general surgery on 06/23/2019 who cleared the patient home for discharge. Patient states medication for constipation OTC has been discussed in detail with medicine. Medicine is planning for prescription for Flomax of discharge. Patient feels he is ready for discharge home. His back pain continues to be present but has been better controlled. He does continue to have some pain that radiates over the right lateral hip worse with ambulation. He has been able to ambulate the hallways without significant difficulty. Condition on day of discharge stable. Patient will be discharged home. Patient was cleared preoperatively for surgery by Dr. Tabor. Patient currently denies any nausea, vomiting, fever, or chills. Patient is eating and voiding freely without difficulty. Patient may shower Tegaderm dressing intact. Patient may remove Tegaderm dressing in 3 days and shower without a dressing at that time. Patient should keep Steri-Strips intact and allow them to fall off naturally. Patient should refrain from driving until at least after their first follow-up appointment in the office. Patient should avoid excessive bending, lifting, and twisting; no lifting greater than 10 pounds. MAPS has been reviewed on, 06/19/2019, with an Overall Overdose Risk Score of 240 with a narcotic score of 320. An "Opiod Start Talking" Forn has been signed by the patient and myself in place in the patient's chart. A prescription has been written for Ultram 50 mg take 1-2 tabs every 6 hours as needed for pain, dispensed #56. Patient should avoid anti-inflammatories over the next 6 weeks postoperatively. Patient is also given a prescription for Flexeril 10 mg take 1 tab every 8 hours as needed for muscle spasms, dispensed #90. Assessment: L3-4 and L4-5 minimally invasive posterior lateral decompression and fusion with transforaminal lumbar interbody fusion Urinary retention; improving Colonic ileus postoperatively History of hypertension, hyperlipidemia and daily tobacco use L4-5 recurrent disc herniation L3-4 disc herniation Spinal stenosis and degenerative disc disease at L3-4 and L4-5 Right lower extremity radiculopathy and weakness History of previous laminectomy and decompression at L4-5 Physical Exam Lumbar Fusion: Status post surgical day number 6 Patient is awake, alert, and oriented 3 Vital signs stable Good chest excursion with deep inspiration and expiration Abdomen somewhat firm with distention and some pain of the right side of the abdomen with palpation; no left sided abdominal pain with palpation Dorsiflexion, plantarflexion, and extensor hallucis longus positive sustained bilaterally No signs or symptoms of DVT; no calf pain; pneumatic cuffs not currently intact bilateral lower extremities Dressing is clean, dry, and intact; no erythema, purulence, or signs of infection No significant pain with palpation around the surgical sites Neurovascularly intact bilaterally lower extremities Procedures: L3-4 and L4-5 minimally invasive posterior lateral decompression and fusion with transforaminal lumbar interbody fusion Patient Condition at Discharge: Stable Plan - Discharge Summary Discharge Rx Participant: No New Discharge Prescriptions: New Cyclobenzaprine [Flexeril] 10 mg PO TID PRN #90 tab PRN Reason: Muscle Spasm traMADol HCL [Ultram] 50 mg PO Q6HR PRN #56 tab PRN Reason: Pain Tamsulosin [Flomax] 0.4 mg PO BID #60 cap.er.24h Continue amLODIPine BESYLATE 5 mg PO DAILY Lovastatin [Mevacor] 40 mg PO DAILY Gemfibrozil [Lopid] 600 mg PO DAILY Aspirin EC [Ecotrin Low Dose] 81 mg PO DAILY #30 tablet. Metoprolol Tartrate 25 mg PO BID traMADol HCL [Ultram] 50 mg PO Q6HR PRN PRN Reason: Pain Cyclobenzaprine [Flexeril] 10 mg PO BID Omeprazole 20 mg PO DAILY Lisinopril 40 mg PO DAILY Discharge Medication List Gemfibrozil [Lopid] 600 mg PO DAILY 01/21/19 [History] Lovastatin [Mevacor] 40 mg PO DAILY 01/21/19 [History] amLODIPine BESYLATE 5 mg PO DAILY 01/21/19 [History] Aspirin EC [Ecotrin Low Dose] 81 mg PO DAILY #30 tablet. 01/22/19 [Rx] Cyclobenzaprine [Flexeril] 10 mg PO BID 06/10/19 [History] Metoprolol Tartrate 25 mg PO BID 06/10/19 [History] traMADol HCL [Ultram] 50 mg PO Q6HR PRN 06/10/19 [History] Lisinopril 40 mg PO DAILY 06/17/19 [History] Omeprazole 20 mg PO DAILY 06/17/19 [History] Cyclobenzaprine [Flexeril] 10 mg PO TID PRN #90 tab 06/19/19 [Rx] traMADol HCL [Ultram] 50 mg PO Q6HR PRN #56 tab 06/19/19 [Rx] Tamsulosin [Flomax] 0.4 mg PO BID #60 cap.er.24h 06/23/19 [Rx] Follow up Appointment(s)/Referral(s): Diallo Nieto MD [STAFF PHYSICIAN] - 1 Week (office will call with appointment time) Shankar Tabor MD [Primary Care Provider] - 06/26/19 10:30 am (With CATTYMAN Maria De Jesus) Faheem Palomo PAC [PHYSICIAN J[employer] ADMINISTRATOR] - 07/06/19 9:45 am (Patient may follow-up with Faheem Palomo PA-C or Dr. Noe Monson at [facility] in 2-3 weeks following discharge. ) Activity/Diet/Wound Care/Special Instructions: 1. Patient may shower with Tegaderm dressing intact. 2. Patient may remove Tegaderm dressing in 3 days and shower without a dressing at that time. 3. Patient should keep Steri-Strips intact and allow them to fall off naturally. 4. Patient should refrain from driving until at least after their first follow- up appointment in the office. 5. Patient should avoid excessive bending, twisting, and lifting; no lifting greater than 10 pounds 6. Take medications as prescribed 7. Do not soak in tub Discharge Disposition: HOME SELF-CARE
== END 2019-06-23 14:40 | disposition home or self-care (01) | DRG 454 ==
LOC: 2ORMAIN 06:27 → 4SSUR 12:15
PROVIDERS: ADMIT Orthopaedic Surgery Orthopaedic Surgery of the Spine; ATTEND Orthopaedic Surgery Orthopaedic Surgery of the Spine
PROC: 0SG1071 Fusion of 2 or more Lumbar Vertebral Joints with Autologous Tissue Substitute, Posterior Approach, Posterior Column, Open Approach (ICD-10-PCS; 2019-06-17)
PROC: 0ST20ZZ Resection of Lumbar Vertebral Disc, Open Approach (ICD-10-PCS; 2019-06-17)
PROC: 07DS3ZZ Extraction of Vertebral Bone Marrow, Percutaneous Approach (ICD-10-PCS; 2019-06-17)
PROC: 30233N0 Transfusion of Autologous Red Blood Cells into Peripheral Vein, Percutaneous Approach (ICD-10-PCS; 2019-06-17)
PROC: 0SG10AJ Fusion of 2 or more Lumbar Vertebral Joints with Interbody Fusion Device, Posterior Approach, Anterior Column, Open Approach (ICD-10-PCS; principal; 2019-06-17 08:30)
DX: M51.16 Intervertebral disc disorders with radiculopathy, lumbar region (principal); K56.7 Ileus, unspecified; M48.061 Spinal stenosis, lumbar region without neurogenic claudication; I11.9 Hypertensive heart disease without heart failure; F17.200 Nicotine dependence, unspecified, uncomplicated; E78.5 Hyperlipidemia, unspecified; K59.00 Constipation, unspecified; K21.0 Gastro-esophageal reflux disease with esophagitis; N40.1 Benign prostatic hyperplasia with lower urinary tract symptoms; R33.8 Other retention of urine; Z71.6 Tobacco abuse counseling; Z79.899 Other long term (current) drug therapy; Z79.82 Long term (current) use of aspirin; Z80.1 Family history of malignant neoplasm of trachea, bronchus and lung; Z80.3 Family history of malignant neoplasm of breast
CPT/HCPCS: 72100; 74019; 80048; 80053; 81001; 83735; 84100; 84443; 85025; 86850; 86891; 86900; 86901

== ENCOUNTER 2021-12-27 08:19 | Day surgery (SDC) | payer BC ==
[2021-12-22 10:12] VITALS: BMI 30.1
[~2021-12-27 08:19] MED LIST changes: -BACITRACIN 50,000 UNIT, POLYMYXIN B 500,000 UNIT in SODIUM CHLORIDE 0.9% IRRIGATIO 1,00... IRRIGATION ONE; -DEXAMETHASONE SOD PHOSPHATE 10 MG/ML 1 ML VIAL IV ONE; +LACTATED RINGERS 1,000 ML IV SCH; +LIDOCAINE 1% (10MG/ML) FOR IV START INTRADERMA PRN; -LIDOCAINE 1% 20 ML VIAL (10MG/ML) FOR IV START INTRADERMA PRN; -fentaNYL (PF) 50 MCG/ML 2 ML AMP IV PRN
[2021-12-27 08:51] VITALS: TEMP 97.9
[2021-12-27] MEDS ORDERED: fentaNYL (PF) 50 MCG/ML 2 ML AMP ONE (09:10)
[2021-12-27] MEDS ORDERED: PROPOFOL 10 MG/ML 20 ML VIAL IV ONE (09:10)
[2021-12-27] MEDS ORDERED: MIDAZOLAM 2 MG/2 ML VIAL ONE (09:10)
--- NOTE | 2021-12-27 09:30 | P.PCN ---
Date of Procedure: 12/27/21 Procedure(s) Performed: BRIEF HISTORY: Patient is a 61-year-old pleasant white male scheduled for an elective colonoscopy as a part of evaluation of prior history of colon polyps. Last colonoscopy was 10 years ago. PROCEDURE PERFORMED: Colonoscopy snare polyp rectum. PREOPERATIVE DIAGNOSIS: History of colon Polyps. IV sedation per Anesthesia. PROCEDURE: After informed consent was obtained, the patient, was brought into the endoscopy unit. IV sedation was administered by Anesthesia under continuous monitoring. Digital rectal examination was normal. Initially the Olympus CF-160 flexible video colonoscope was then inserted in the rectum, gradually advanced into the cecum without any difficulty. Careful examination was performed as the scope was gradually being withdrawn. Ileocecal valve and the appendiceal orifice were visualized and appeared normal. Prep was excellent. Mucosa of the cecum, ascending colon, transverse colon, descending colon appeared normal. The sigmoid colon there was a 5 mm sessile polyp removed by snare polypectomy., Rest of the sigmoid colon, and rectum appeared normal. Retroflexion was performed in the rectum and small internal hemorrhoids were seen. The patient tolerated the procedure well. IMPRESSION: 5 millimeters; sigmoid polyp status post polypectomy Small internal hemorrhoids RECOMMENDATIONS: Findings of this examination were discussed with the patient as well as his family. He was advised to follow with the biopsy results. If the biopsy reveals adenoma he can have a repeat colonoscopy in 5 years.
[2021-12-27 10:17] VITALS: BP 106/68; PULSE 75; RESP 18
== END 2021-12-27 10:25 | disposition home or self-care (01) ==
LOC: ORWHC2ENDO 08:19
PROVIDERS: ATTEND Internal Medicine Gastroenterology
DX: Z12.11 Encounter for screening for malignant neoplasm of colon (principal); D12.5 Benign neoplasm of sigmoid colon; K44.9 Diaphragmatic hernia without obstruction or gangrene; Z86.010 Personal history of colon polyps; K21.9 Gastro-esophageal reflux disease without esophagitis; K64.8 Other hemorrhoids; F17.210 Nicotine dependence, cigarettes, uncomplicated; Z98.890 Other specified postprocedural states; Z79.82 Long term (current) use of aspirin; Z79.810 Long term (current) use of selective estrogen receptor modulators (SERMs)
CPT/HCPCS: 88305; 45385; J2250; J3010; J2704

== ENCOUNTER 2024-02-03 09:23 | Emergency (ER) | payer BC ==
[2024-02-03 10:02] LABS: Basophils # (A) 0.2 k/uL (0-0.2); Basophils % (A) 1 %; Eosinophils # (A) 0.3 k/uL (0-0.7); Eosinophils % (A) 2 %; HCT 48.5 % (39.0-53.0); HGB 16.5 gm/dL (13.0-17.5); Lymphocytes # (A) 2.7 k/uL (1.0-4.8); Lymphocytes % (A) 15 %; MCV 88.1 fL (80.0-100.0); Mean Platelet Volume 7.4; Monocytes # (A) 1.1 k/uL (0-1.0); Monocytes % (A) 6 %; Neutrophils # (A) 13.8 k/uL (1.3-7.7); Neutrophils % (A) 76 %; Platelet Count 358 k/uL (150-450); WBC 18.2 k/uL (3.8-10.6)
[2024-02-03] MEDS: SODIUM CHLORIDE 0.9% 1,000 ML IV STA (10:05)
[2024-02-03] MEDS: KETOROLAC 15 MG/ML 1 ML VIAL IVP STA ×2 (10:06→12:43)
[2024-02-03] MEDS: ONDANSETRON 4 MG/2 ML VIAL IVP STA (10:06)
[2024-02-03 10:13] LABS: ALT 27 U/L (4-49); AST 29 U/L (17-59); African American GFR (CKD) 83 (>60 ml/min/1.73 sqM); Alkaline Phosphatase 83 U/L (38-126); Amylase 63 U/L (30-110); Anion Gap 13 mmol/L; Blood Urea Nitrogen 37 mg/dL (9-20); Calcium 9.6 mg/dL (8.4-10.2); Carbon Dioxide 20 mmol/L (22-30); Chloride 103 mmol/L (98-107); Glucose 149 mg/dL (74-99); Lipase 55 U/L (23-300); Non-African American GFR(CKD) 72 (>60 ml/min/1.73 sqM); Sodium 136 mmol/L (137-145); Total Bilirubin 0.7 mg/dL (0.2-1.3); Total Protein 7.9 g/dL (6.3-8.2)
--- NOTE | 2024-02-03 10:17 | ED ---
Abdominal Pain HPI - General Chief Complaint: Abdominal Pain Stated Complaint: Back pain, groin pain Time Seen by Provider: 02/03/24 09:32 Source: patient, RN notes reviewed Mode of arrival: ambulatory Limitations: no limitations - History of Present Illness Initial Comments: This is a 63-year-old male who presents to the emergency department for flank p ain. Patient states that he was woken from his sleep by pain in the left flank that radiates into the left groin. He did start to have nausea on his way to the emergency department. Denies any urinary symptoms. Denies any history of kidney stones or history of similar symptoms in the past. He is recovering from an upper respiratory infection and currently taking steroids, with his last dose scheduled for today. MD Complaint: abdominal pain, flank pain - Related Data Home Medications Medication Instructions Recorded Confirmed Lovastatin [Mevacor] 40 mg PO PC-SUPPER 01/21/19 12/27/21 amLODIPine BESYLATE 5 mg PO DAILY 01/21/19 12/27/21 gemfibroziL [Lopid] 600 mg PO PC-SUPPER 01/21/19 12/27/21 Metoprolol Tartrate 25 mg PO BID 06/10/19 12/27/21 Omeprazole 20 mg PO PC-SUPPER 06/17/19 12/27/21 Aspirin EC [Ecotrin Low Dose] 81 mg PO PC-SUPPER 12/22/21 12/27/21 Tamsulosin [Flomax] 0.4 mg PO DAILY 12/22/21 12/27/21 lisinopriL [Prinivil] 20 mg PO QAM 12/22/21 12/27/21 Previous Rx's Medication Instructions Recorded HYDROcodone/APAP 5-325MG [Cumming 1 tab PO Q6HR PRN 3 Days #12 tab 02/03/24 5-325] Ketorolac [Toradol] 10 mg PO Q6HR PRN #15 tab 02/03/24 Ondansetron Odt [Zofran Odt] 4 mg PO Q8HR PRN #20 tab 02/03/24 Allergies Allergy/AdvReac Type Severity Reaction Status Date / Time No Known Allergies Allergy Verified 12/27/21 08:58 Review of Systems ROS Statement: Those systems with pertinent positive or pertinent negative responses have been documented in the HPI. ROS Other: All systems not noted in ROS Statement are negative. Past Medical History Past Medical History: GERD/Reflux, Hyperlipidemia, Hypertension Additional Past Medical History / Comment(s): pasr expsoure to asbestos, hx fx collar bone age 16, hiatal hernia, History of Any Multi-Drug Resistant Organisms: None Reported Past Surgical History: Back Surgery Additional Past Surgical History / Comment(s): colonoscopy/polypectomy-benign, egd, back surgery x 2 Past Anesthesia/Blood Transfusion Reactions: No Reported Reaction Additional Past Anesthesia/Blood Transfusion Reaction / Comment(s): . Past Psychological History: No Psychological Hx Reported Smoking Status: Current every day smoker - Past Family History Mother Family Medical History: Cancer Additional Family Medical History / Comment(s): cervical cancer Father Family Medical History: Cancer Additional Family Medical History / Comment(s): lung cancer, was smoker and had expsoure to asbestos Sister(s) Family Medical History: Cancer Additional Family Medical History / Comment(s): BREAST CANCER General Exam Limitations: no limitations General appearance: alert, in no apparent distress Head exam: Present: atraumatic, normocephalic, normal inspection Respiratory exam: Present: normal lung sounds bilaterally. Absent: respiratory distress, wheezes, rales, rhonchi, stridor Cardiovascular Exam: Present: regular rate, normal rhythm, normal heart sounds. Absent: systolic murmur, diastolic murmur, rubs, gallop, clicks GI/Abdominal exam: Present: soft, tenderness (LLQ), normal bowel sounds. Absent: distended, guarding, rebound, rigid Back exam: Present: CVA tenderness (L). Absent: CVA tenderness (R) Neurological exam: Present: alert, oriented X3, CN II-XII intact Psychiatric exam: Present: normal affect, normal mood Skin exam: Present: warm, dry, intact, normal color. Absent: rash Course Vital Signs 02/03/24 02/03/24 09:24 13:42 Temperature 97.5 F L 97.9 F Pulse Rate 76 71 Respiratory 20 18 Rate Blood Pressure 156/78 137/66 O2 Sat by Pulse 98 96 Oximetry Medical Decision Making - Medical Decision Making This is a 63 year old male who presents to the emergency department for flank pain. Was pt. sent in by a medical professional or institution? @ -No Did you speak to anyone other than the patient for history? @ -No Did you review nursing and triage notes? @ -Yes, and I agree, it is accurate with regards to the patient's symptoms. Were old charts reviewed? @ -No Differential Diagnosis? @ -Differential Flank Pain: UTI, pyelonephritis, kidney stone, musculoskeletal, pancreatitis, cholecystitis, this is not meant to be an all-inclusive list. EKG interpreted by me (3pts min.)? @ -Not obtained X-rays interpreted by me (1pt min.)? @ -Not obtained CT interpreted by me (1pt min.)? @ -CT scan of the abdomen and pelvis obtained. My interpretation identifies a left ureteral calculus. U/S interpreted by me (1pt. min.)? @ -Not obtained What testing was considered but not performed? (CT, X-rays, U/S, labs)? Why? @ -None What meds were considered but not given? Why? @ -None Did you discuss the management of the patient with other professionals? @ -No Did you reconcile home meds? @ -No Was smoking cessation discussed for >3mins.? @ -I discussed smoking cessation for greater than 3 minutes. The risk of smoking were discussed with the patient including but not limited to risks of cancer, stroke, coronary artery disease and COPD. Also discussed with patient were multiple methods of quitting smoking. Lastly we discussed the financial cost of smoking. Was critical care preformed (if so, how long)? @ -No Were there social determinants of health that impacted care today? How? (Homelessness, low income, unemployed, alcoholism, drug addiction, transportation, low edu. Level, literacy, decrease access to med. care, senior care, rehab)? @ -No Was there de-escalation of care discussed even if they declined? (Discuss DNR or withdrawal of care, Hospice)? @ -No What co-morbidities impacted this encounter? (DM, HTN, Smoking, COPD, CAD, Cancer, CVA, Hep., AIDS, mental health diagnosis, sleep apnea, morbid obesity)? @ -Smoking, HLD, HTN Was patient admitted / discharged? @ -Discharged. Lab work demonstrates leukocytosis, likely secondary to active steroid use. Lab work otherwise unremarkable. Urinalysis demonstrates blood without evidence of infection. CT scan of the abdomen and pelvis obtained demonstrating a 2mm stone in the distal left ureter with mild hydronephrosis. Symptoms well-controlled in the emergency department and patient felt stable for discharge home. Rx for Toradol, Cumming, and Zofran provided with dosing instructions reviewed. Information for urology follow up provided. Patient discharged home in stable condition. Undiagnosed new problem with uncertain prognosis? @ -None Drug Therapy requiring intensive monitoring for toxicity (Heparin, Nitro, Insulin, Cardizem)? @ -None Were any procedures done? @ -None Diagnosis/symptom? @ -Ureteral calculus Acute, or Chronic, or Acute on Chronic? @ -Acute Uncomplicated (without systemic symptoms) or Complicated (systemic symptoms)? @ -Uncomplicated Side effects of treatment? @ -None Exacerbation, Progression, or Severe Exacerbation] @ -Not applicable Poses a threat to life or bodily function? @ -No Return precautions reviewed in depth, the patient is instructed to return to the emergency department with any new, worsening, or concerning symptoms. Patient verbalized understanding. This case was discussed in detail with the attending ED physician, Dr. Kaba. Presentation, findings, and treatment plan discussed in detail as well. - Lab Data Result diagrams: 02/03/24 09:55 02/03/24 09:55 Lab Results 02/03/24 02/03/24 02/03/24 Range/Units 09:55 09:55 10:02 WBC 18.2 H (3.8-10.6) k/uL RBC 5.50 (4.30-5.90) m/uL Hgb 16.5 (13.0-17.5) gm/dL Hct 48.5 (39.0-53.0) % MCV 88.1 (80.0-100.0) fL MCH 30.0 (25.0-35.0) pg MCHC 34.0 (31.0-37.0) g/dL RDW 13.0 (11.5-15.5) % Plt Count 358 (150-450) k/uL MPV 7.4 Neutrophils % 76 % Lymphocytes % 15 % Monocytes % 6 % Eosinophils % 2 % Basophils % 1 % Neutrophils # 13.8 H (1.3-7.7) k/uL Lymphocytes # 2.7 (1.0-4.8) k/uL Monocytes # 1.1 H (0-1.0) k/uL Eosinophils # 0.3 (0-0.7) k/uL Basophils # 0.2 (0-0.2) k/uL Sodium 136 L (137-145) mmol/L Potassium 4.9 (3.5-5.1) mmol/L Chloride 103 (98-107) mmol/L Carbon Dioxide 20 L (22-30) mmol/L Anion Gap 13 mmol/L BUN 37 H (9-20) mg/dL Creatinine 1.09 (0.66-1.25) mg/dL Est GFR (CKD-EPI)AfAm 83 (>60 ml/min/1.73 sqM) Est GFR (CKD-EPI)NonAf 72 (>60 ml/min/1.73 sqM) Glucose 149 H (74-99) mg/dL Calcium 9.6 (8.4-10.2) mg/dL Total Bilirubin 0.7 (0.2-1.3) mg/dL AST 29 (17-59) U/L ALT 27 (4-49) U/L Alkaline Phosphatase 83 (38-126) U/L Total Protein 7.9 (6.3-8.2) g/dL Albumin 5.0 (3.5-5.0) g/dL Amylase 63 (30-110) U/L Lipase 55 (23-300) U/L Urine Color Yellow Urine Appearance Clear (Clear) Urine pH 5.5 (5.0-8.0) Ur Specific [place] 1.032 (1.001-1.035) Urine Protein Trace H (Negative) Urine Glucose (UA) Negative (Negative) Urine Ketones Negative (Negative) Urine Blood Moderate H (Negative) Urine Nitrite Negative (Negative) Urine Bilirubin Negative (Negative) Urine Urobilinogen <2.0 (<2.0) mg/dL Ur Leukocyte Esterase Negative (Negative) Urine RBC 23 H (0-5) /hpf Urine WBC 1 (0-5) /hpf Ur Squamous Epith Cells <1 (0-4) /hpf Urine Mucus Occasional H (None) /hpf - Radiology Data Radiology results: report reviewed, image reviewed Disposition Clinical Impression: Ureteral calculus, Nicotine dependence Disposition: HOME SELF-CARE Instructions (If sedation given, give patient instructions): Renal Colic (ED), Ureteral Stones (ED) Additional Instructions: Return to the emergency department with any new, worsening, or concerning symptoms. Take the Toradol with Tylenol as needed for pain relief. If you choose to take the Toradol, do not take any other anti-inflammatories such as ibuprofen, take one or the other. Take the Cumming sparingly when your pain is t he most severe. You can take the Zofran up to every 8 hours as needed for nausea and vomiting. Follow up with your primary care provider in 1-2 days. Contact the urologist as listed below for a follow up appointment. Prescriptions: HYDROcodone/APAP 5-325MG [Cumming 5-325] 1 tab PO Q6HR PRN 3 Days #12 tab PRN Reason: Pain Ketorolac [Toradol] 10 mg PO Q6HR PRN #15 tab PRN Reason: Pain Ondansetron Odt [Zofran Odt] 4 mg PO Q8HR PRN #20 tab PRN Reason: Nausea And Vomiting Is patient prescribed a controlled substance at d/c from ED?: Yes When asked, does pt state using other controlled substances?: No If prescribed controlled substance>3 days was MAPS reviewed?: Prescribed <3 Days Referrals: Shankar Tabor MD [Primary Care Provider] - 1-2 days Diallo Nieto MD [STAFF PHYSICIAN] - 1-2 days Time of Disposition: 12:59
[2024-02-03 10:20] LABS: Potassium 4.9 mmol/L (3.5-5.1)
[2024-02-03] MEDS: MORPHINE SULFATE 2 MG/ML SYRINGE IVP STA ×2 (10:44→12:43)
--- NOTE | 2024-02-03 10:52 | CT ---
EXAMINATION: CT ABDOMEN AND PELVIS WITHOUT IV CONTRAST DATE OF EXAMINATION: 02/03/2024. COMPARISON: None available. INDICATION: Left flank pain. PROCEDURE: Axial CT of the abdomen and pelvis was performed with sagittal and coronal reformatted i mages without contrast enhancement. The exam is limited because some types of pathology may not be ad equately demonstrated due to lack of contrast enhancement. CT dose lowering techniques were used, to include: automated exposure control, adjustment for patient size, and/or use of iterative reconstruct ion. FINDINGS: LOWER CHEST : Calcified granulomas are seen at the left lung base. Visualized lung bases otherwise a ppear clear. There are no pleural or pericardial effusions. ABDOMEN: Liver and Biliary system: Normal. Adrenal glands: Normal. Kidneys and ureters: There is a 2 mm stone in the distal left ureter with mild left-sided hydronephr osis and perinephric stranding. The right kidney and ureter appear unremarkable. Spleen: Numerous calcified granulomas are seen in the spleen. Pancreas: Normal. Gallbladder: Normal. Lymph nodes, Peritoneum and mesentery: There is no mesenteric or retroperitoneal lymphadenopathy. Gastrointestinal tract: There are no dilated loops of bowel or free intraperitoneal air. . The appe ndix is normal. Aorta/IVC: There is moderate vascular calcification is significant vascular consolidation throughou t the abdominal aorta without evidence of aneurysmal dilation. IVC normal. Abdominal wall: Normal. PELVIS: Fluid: There is no free fluid in the pelvis. Lymph Nodes: There is no pelvic or inguinal lymphadenopathy.. Urinary bladder: Normal. BONES: Posterior spinal fusion is seen between L3 and L5. Disc spaces are seen in the disc spaces at those levels. There are no acute osseous abnormalities. ADDITIONAL SIGNIFICANT FINDINGS: None. IMPRESSION: 1. 2 mm stone in the distal left ureter with mild left-sided hydronephrosis. 2. No bowel obstruction or appendicitis. 3. Evidence of prior granulomatous disease.
[2024-02-03 12:45] LABS: Appearance,Urine Clear (Clear); Bilirubin,Urine Negative (Negative); Blood,Urine Moderate (Negative); Color,Urine Yellow; Glucose,Urine (UA) Negative (Negative); Ketones,Urine Negative (Negative); Leukocyte Esterase,Urine Negative (Negative); Mucus,Urine Occasional /hpf; Nitrite,Urine Negative (Negative); PH, Urine 5.5 (5.0-8.0); Protein,Urine Trace (Negative); RBC,Urine 23 /hpf (0-5); Specific Gravity,Urine 1.032 (1.001-1.035); Squamous Epithelial Cell,Urine <1 /hpf (0-4); Urobilinogen,Urine <2.0 mg/dL (<2.0); WBC,Urine 1 /hpf (0-5)
[2024-02-03 14:05] VITALS: BP 137/66; PULSE 71; RESP 18; TEMP 97.9
== END 2024-02-03 13:42 | disposition home or self-care (01) ==
LOC: EC 09:23
DX: N13.2 Hydronephrosis with renal and ureteral calculous obstruction (principal); F17.200 Nicotine dependence, unspecified, uncomplicated; K21.9 Gastro-esophageal reflux disease without esophagitis; E78.5 Hyperlipidemia, unspecified; I10 Essential (primary) hypertension; Z79.899 Other long term (current) drug therapy; Z79.82 Long term (current) use of aspirin
CPT/HCPCS: 36415; 80053; 82150; 83690; 85025; 81001; 74176; 99284; 96374; 96375 ×2; 96376 ×2; 96361; J2405; J2270; J1885; 99406